=== PATIENT | male | born 1940 | race Caucasian/White ===

== ENCOUNTER 2017-04-29 01:53 | Emergency (ER) | payer MEDICARE, BC ==
[~2017-04-29] VITALS: Ht 175.3 cm; Wt 98.4 kg
[~2017-04-29 01:53] MED LIST: AMIO100T PO; AMIO200T7 PO; ASCO500C PO; ASPI-630 PO; CALC600T4 PO; D RIBOSE; LEVO125T PO; MAGN400C PO; METO200T5 PO; NIAC10002 PO; NIAC500T PO; OMEG1CAP6 PO; PANT40GR PO; POTA20TA4 PO; PRAS25TA PO; PRAS50CA PO; TEST200V4 IM; VITA1TAB19 PO; VITA1TAB31 PO; VITA400C11 PO; [UNRECOGNIZED DRUG - OTHER]; glucosamine
[2017-04-29 02:44] LABS: BASO # 0.1 x10^3/uL (0.0-0.2); BASO % 1 % (0-3); EOS # 0.1 x10^3/uL (0.0-0.7); EOS % 1 % (0-3); HEMATOCRIT 45.3 % (39.0-53.0); HEMOGLOBIN 15.5 g/dL (13.0-17.5); LYMPH # 1.7 x10^3/uL (1.0-4.8); LYMPH % 13 % (24-48); MEAN CORPUSCULAR HEMOGLOBIN 34 pg (25-35); MEAN CORPUSCULAR HGB CONC 34 g/dL (31-37); MEAN CORPUSCULAR VOLUME 98 fL (79-100); MONO # 1.3 x10^3/uL (0.0-1.1); MONO % 10 % (0-9); NEUT # 9.7 x10^3uL (1.8-7.7); NEUT % 75 % (31-73); PLATELET COUNT 223 x10^3/uL (140-400); RED BLOOD COUNT 4.62 x10^6/uL (4.30-5.70)
[2017-04-29 02:58] LABS: ALBUMIN/GLOBULIN RATIO 1.2 (1.0-1.7); CALCIUM 9.5 mg/dL (8.5-10.1); CREATININE 1.4 mg/dL (0.7-1.3); GFR 49.3; POTASSIUM 4.4 mmol/L (3.5-5.1); TOTAL BILIRUBIN 0.4 mg/dL (0.2-1.0); TOTAL PROTEIN 7.3 g/dL (6.4-8.2)
[2017-04-29] MEDS ORDERED: MORPHINE SULFATE 4 MG/ML DISP.SYRIN. IV ONE ×2 (03:00→04:30)
--- NOTE | 2017-04-29 03:47 | PHYS DOC ---
Past History Past Medical History: Hypothyroid, Other Additional Past Medical Histor: idiopathic ventric tachycardia Past Surgical History: Pacemaker, Other Additional Past Surgical Histo: bilat knee surgery, pacemaker is also difb Alcohol Use: None Drug Use: None Adult General Chief Complaint Chief Complaint: ABDOMINAL PAIN HPI HPI Patient is a 76-year-old male who presents to complaints of abdominal pain that started suddenly while he was watching the football game. Patient started in the middle abdominal area that has migrated to the right middle and right lower abdominal area. Patient denies any vomiting or diarrhea, he is passing gas. No recent trauma. Patient denies any chest pain or back pain or testicular pain. Review of Systems Review of Systems Constitutional: Denies fever or chills [] HENT: Denies nasal congestion or sore throat [] Respiratory: Denies cough or shortness of breath [] Cardiovascular: No chest pain GI: Denies nausea, vomiting, bloody stools or diarrhea. Yes to abdominal pain as described in the history of present illness : Denies dysuria or hematuria or testicular pain Musculoskeletal: Denies back pain or joint pain [] Integument: Denies rash or skin lesions [] Neurologic: Denies headache, focal weakness or sensory changes [] All other systems were reviewed and found to be within normal limits, except as documented in this note. Current Medications Current Medications Current Medications Medications (Trade) Dose Ordered Sig/Brianne Start Time Stop Time Status Last Admin Dose Admin Morphine Sulfate (Morphine 4mg Syringe) 4 mg 1X ONCE 04/29/17 03:00 04/29/17 03:01 DC 04/29/17 02:56 4 MG Allergies Allergies Allergies Coded Allergies Type Severity Reaction Last Updated Verified Cephalexin Monohydrate Allergy Intermediate Hives 06/01/15 Yes amoxicillin trihydrate Allergy Intermediate 06/01/15 Yes cefazolin sodium Allergy Intermediate Hives 06/01/15 Yes mexiletine Allergy Intermediate 06/01/15 Yes potassium clavulanate Allergy Intermediate 06/01/15 Yes Physical Exam Physical Exam Constitutional: Well developed, well nourished, no acute distress, non-toxic appearance. [] HENT: Normocephalic, atraumatic, bilateral external ears normal, nose normal. [] Eyes: EOMI, conjunctiva normal, no discharge. [] Neck: Normal range of motion, Midline no stridor. [] Cardiovascular:Heart rate regular rhythm, no murmur, equal pulses, normal perfusion Lungs & Thorax: Bilateral breath sounds clear to auscultation, no tachypnea Abdomen: Bowel sounds normal, soft, tenderness to palpation in the mid abdomen and right mid abdomen and right lower abdomen without guarding or rebound, no masses, no pulsatile masses. : no evidence of torsion[] Skin: Warm, dry, no erythema, no rash. [] Back: No tenderness, no CVA tenderness. [] Extremities: No tenderness, no cyanosis, no clubbing, ROM intact, no edema. [] Neurologic: Alert and oriented X 3, normal motor function, normal speech, no focal deficits noted. [] Psychologic: Affect normal, judgement normal, mood normal. [] Current Patient Data Vital Signs Vital Signs Date Time Temp Pulse Resp B/P (MAP) Pulse Ox O2 Delivery O2 Flow Rate FiO2 04/29/17 02:56 20 99 Room Air 04/29/17 02:00 97.5 61 Lab Results Laboratory Tests Test 04/29/17 02:30 White Blood Count 13.0 x10^3/uL (4.0-11.0) H Red Blood Count 4.62 x10^6/uL (4.30-5.70) Hemoglobin 15.5 g/dL (13.0-17.5) Hematocrit 45.3 % (39.0-53.0) Mean Corpuscular Volume 98 fL (79-100) Mean Corpuscular Hemoglobin 34 pg (25-35) Mean Corpuscular Hemoglobin Concent 34 g/dL (31-37) Red Cell Distribution Width 13.0 % (11.5-14.5) Platelet Count 223 x10^3/uL (140-400) Neutrophils (%) (Auto) 75 % (31-73) H Lymphocytes (%) (Auto) 13 % (24-48) L Monocytes (%) (Auto) 10 % (0-9) H Eosinophils (%) (Auto) 1 % (0-3) Basophils (%) (Auto) 1 % (0-3) Neutrophils # (Auto) 9.7 x10^3uL (1.8-7.7) H Lymphocytes # (Auto) 1.7 x10^3/uL (1.0-4.8) Monocytes # (Auto) 1.3 x10^3/uL (0.0-1.1) H Eosinophils # (Auto) 0.1 x10^3/uL (0.0-0.7) Basophils # (Auto) 0.1 x10^3/uL (0.0-0.2) Sodium Level 141 mmol/L (136-145) Potassium Level 4.4 mmol/L (3.5-5.1) Chloride Level 103 mmol/L (98-107) Carbon Dioxide Level 31 mmol/L (21-32) Anion Gap 7 (6-14) Blood Urea Nitrogen 21 mg/dL (8-26) Creatinine 1.4 mg/dL (0.7-1.3) H Estimated GFR (Cockcroft-Gault) 49.3 BUN/Creatinine Ratio 15 (6-20) Glucose Level 139 mg/dL (70-99) H Calcium Level 9.5 mg/dL (8.5-10.1) Total Bilirubin 0.4 mg/dL (0.2-1.0) Aspartate Amino Transferase (AST) 21 U/L (15-37) Alanine Aminotransferase (ALT) 31 U/L (16-63) Alkaline Phosphatase 58 U/L (46-116) Total Protein 7.3 g/dL (6.4-8.2) Albumin 4.0 g/dL (3.4-5.0) Albumin/Globulin Ratio 1.2 (1.0-1.7) Lipase 110 U/L (73-393) EKG EKG [] Radiology/Procedures Radiology/Procedures IMPRESSION: 1. Findings concerning for acute appendicitis with appendicolith.[] Course & Med Decision Making Course & Med Decision Making Pertinent Labs and Imaging studies reviewed. (See chart for details) [id number] Dr Rouse (surgery) paged, Dr Rogers (hospitalist) paged Dr Rouse ok with transfer and antibiotics. Per pt reaction to first gen cephalosporin is hives only, not anaphylaxis. We will give zosyn as is 4th gen and give slowly and monitor. [id number] Dr Rogers accepts transfer [] Dragon Disclaimer Dragon Disclaimer This electronic medical record was generated, in whole or in part, using a voice recognition dictation system. Departure Departure: Impression: Primary Impression: Appendicitis Disposition: 05 XFER OTHER Condition: STABLE Referrals: GARY BROOKS (PCP) Johan SANDOVAL MD Apr 29, 2017 03:47
[2017-04-29 03:55] LABS: BACTERIA,URINE 0 /HPF (0-FEW); BILIRUBIN,URINE NEG (NEG); CLARITY,URINE CLEAR; COLOR,URINE YELLOW; GLUCOSE,URINE NEG (NEG); NITRITE,URINE NEG (NEG); RBC,URINE 0 /HPF (0-2); UROBILINOGEN,URINE 0.2 mg/dL (0.2 mg/dL); WBC,URINE OCC /HPF (0-4)
--- NOTE | 2017-04-29 04:06 | RAD ---
INDICATION: Generalized abdominal pain - mostly on right side
no previous abdominal surgeries
Per ER Dr no contrast
No previous for comparison COMPARISON: None. TECHNIQUE: Axial CT images were obtained through the abdomen and pelvis without intravenous contrast. Limited assessment of solid organ structures and vasculature secondary to lack of intravenous contrast. One or more of the following individualized dose reduction techniques were utilized for this examination: 1. Automated exposure control; 2. Adjustment of the mA and/or kV according to patient size; 3. Use of iterative reconstruction technique. FINDINGS: Pacemaker leads partially seen. Calcific atherosclerosis. Moderate. Fat-containing inguinal hernias. No intrahepatic bile duct dilation. No peripancreatic edema. Spleen unremarkable. Cystic lesion upper pole left kidney. Left peripelvic cyst versus mild distention left renal collecting system. Urinary bladder is partially distended. The prostate is enlarged. No definite radiopaque obstructive ureter stone. Colonic diverticulosis. 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 No dilated loops of bowel to suggest obstruction. Degenerative changes of spine. Degenerative changes of the bilateral hips. Multilevel central canal and neural foraminal stenosis. IMPRESSION: 1. Findings concerning for acute appendicitis with appendicolith. Electronically signed by: Praneeth Muller MD (04/29/2017 4:03 AM) [facility]
[2017-04-29] MEDS ORDERED: MORPHINE SULFATE 2 MG/ML DISP.SYRIN. IV ONE (04:15)
[2017-04-29] MEDS ORDERED: PIPERACILLIN/TAZOBACTAM 4.5 GM in IV NORMAL SALINE 50ML 50 ML IV ONE (04:30)
[2017-04-29] MEDS ORDERED: IV NORMAL SALINE 50ML 50 ML ONE (04:43)
[2017-04-29] MEDS ORDERED: PIPERACILLIN/TAZOBACTAM 4.5 GM VIAL IV ONE (04:43)
[2017-04-29] MEDS ORDERED: CIPROFLOXACIN 400MG PREMIX 200 ML IV ONE (05:00)
[2017-04-29] MEDS ORDERED: HYDROmorphone PF 2 MG/ML VIAL ONE (05:04)
[2017-04-29] MEDS ORDERED: HYDROmorphone PF 1 MG/ML DISP.SYRIN IV ONE (05:15)
[2017-04-29] MEDS ORDERED: ONDANSETRON PF 4 MG/2 ML VIAL. ONE (06:05)
[2017-04-29] MEDS ORDERED: ONDANSETRON PF 4 MG/2 ML VIAL. IV ONE ×3 (06:30→07:00)
[2017-04-29] MEDS ORDERED: IV NORMAL SALINE 500ML 500 ML IV ONE (06:30)
[2017-04-29 06:50] VITALS: BP 118/70
== END 2017-04-29 06:50 | disposition short-term general hospital (02) ==
LOC: ER 01:53
DX: K35.80 Unspecified acute appendicitis (principal); E03.9 Hypothyroidism, unspecified; Z95.0 Presence of cardiac pacemaker; Z88.1 Allergy status to other antibiotic agents; Z88.8 Allergy status to other drugs, medicaments and biological substances
CPT/HCPCS: 36415; 74176; 80053; 81001; 82947; 83690; 85025; 96365; 96367; 96375; 96376; 99285; J0744; J1170; J2270; J2405; J3490; J7040

== ENCOUNTER 2018-03-13 06:34 | Emergency (ER) | payer MEDICARE, BC ==
[~2018-03-13] VITALS: Ht 177.8 cm; Wt 97.9 kg
[~2018-03-13 06:34] MED LIST changes: +METO200T46 PO; -METO200T5 PO
[2018-03-13 06:40] VITALS: BP 154/75
[2018-03-13 06:59] LABS: BASO # 0.1 x10^3/uL (0.0-0.2); BASO % 1 % (0-3); EOS # 0.1 x10^3/uL (0.0-0.7); EOS % 2 % (0-3); HEMATOCRIT 40.3 % (39.0-53.0); HEMOGLOBIN 13.7 g/dL (13.0-17.5); LYMPH % 40 % (24-48); MEAN CORPUSCULAR HEMOGLOBIN 33 pg (25-35); MEAN CORPUSCULAR HGB CONC 34 g/dL (31-37); MEAN CORPUSCULAR VOLUME 98 fL (79-100); MONO # 0.7 x10^3/uL (0.0-1.1); MONO % 13 % (0-9); NEUT # 2.3 x10^3uL (1.8-7.7); NEUT % 44 % (31-73); PLATELET COUNT 217 x10^3/uL (140-400); RED CELL DISTRIBUTION WIDTH 12.8 % (11.5-14.5); WHITE BLOOD COUNT 5.1 x10^3/uL (4.0-11.0)
[2018-03-13] MEDS ORDERED: IV NORMAL SALINE 1,000ML 1,000 ML IV SCH (07:00)
[2018-03-13] MEDS ORDERED: MIDAZOLAM HCL PF 5 MG/5 ML VIAL. IV ONE (07:15)
[2018-03-13] MEDS ORDERED: METOPROLOL TARTRATE 5 MG/5 ML VIAL. IV ONE (07:15)
--- NOTE | 2018-03-13 07:17 | PHYS DOC ---
Past History Past Medical History: Heart Disease Additional Past Medical Histor: idiopathic ventric tachycardia Past Surgical History: Appendectomy, Other Additional Past Surgical Histo: bilat knee surgery, pacemaker is also difb Alcohol Use: None Drug Use: None Adult General Chief Complaint Chief Complaint: CHEST PAIN HPI HPI Patient is a 77-year-old male who presents with complaint that his defibrillator has been firing over the last few days. This morning the defibrillator has fired twice, first at 5:27 AM and second time at 6:12 AM. The last time it had fired was on the of this month. Patient does indicate that for about a month he has been feeling like he is in of brain fog and just having generalized weakness. He denies any chest pain but does indicate that he has little bit of shortness of breath. He states that just prior to the defibrillator going off he was not aware of any specific symptoms. He does admit to feeling anxious at this time in anticipation of defibrillator going off again. Review of Systems Review of Systems Constitutional: Denies fever or chills [] Respiratory: Denies cough. Admits to mild shortness of breath [] Cardiovascular: Denies chest pain[] GI: Denies abdominal pain, nausea, vomiting or diarrhea [] Neurologic: Denies headache, focal weakness or sensory changes [] All other systems were reviewed and found to be within normal limits, except as documented in this note. Allergies Allergies Allergies Coded Allergies Type Severity Reaction Last Updated Verified Cephalexin Monohydrate Allergy Intermediate Hives 06/01/15 Yes amoxicillin trihydrate Allergy Intermediate 06/01/15 Yes cefazolin sodium Allergy Intermediate Hives 06/01/15 Yes mexiletine Allergy Intermediate 06/01/15 Yes potassium clavulanate Allergy Intermediate 06/01/15 Yes Physical Exam Physical Exam Constitutional: Well developed, well nourished, no acute distress, non-toxic appearance. [] HENT: Normocephalic, atraumatic, bilateral external ears normal, oropharynx moist, no oral exudates, nose normal. [] Eyes: PERRLA, EOMI, conjunctiva normal, no discharge. [] Neck: Normal range of motion, no tenderness, supple, no stridor. [] Cardiovascular: Regular rate and rhythm [] Lungs & Thorax: Bilateral breath sounds clear to auscultation [] Abdomen: Bowel sounds normal, soft, no tenderness. [] Skin: Warm, dry, no erythema, no rash. [] Extremities: No tenderness, no cyanosis, no clubbing, ROM intact, no edema. [] Neurologic: Alert and oriented X 3, normal motor function, normal sensory function, no focal deficits noted. [] Current Patient Data Vital Signs Vital Signs Date Time Temp Pulse Resp B/P (MAP) Pulse Ox O2 Delivery O2 Flow Rate FiO2 03/13/18 06:40 97.4 72 20 100 Room Air EKG EKG EKG demonstrates normal sinus rhythm with rate of 63.[] Radiology/Procedures Radiology/Procedures [] Impressions: PROCEDURE: PORTABLE CHEST 1V Single view chest 03/13/2018 CLINICAL INDICATION: Weakness. COMPARISON: Chest 05/31/2015 FINDINGS: Left chest wall cardiac conduction device is in similar position. There are multiple abandoned right subclavian cardiac conduction device leads in similar position. Cardiac and mediastinal silhouettes unremarkable. No pleural effusion, pneumothorax or focal consolidation. IMPRESSION: No acute cardiopulmonary abnormality. Course & Med Decision Making Course & Med Decision Making Pertinent Labs and Imaging studies reviewed. (See chart for details) Upon patient arrival, an IV was established and blood work drawn. Patient's pacemaker was interrogated. While awaiting interrogation report, patient had a third discharge of his defibrillator. At this point, Dr. Colvin was contacted and he is recommending re-bolusing with amiodarone and starting drip. In the meantime, interrogation report returned and demonstrates 3 episodes of ventricular fibrillation for which defibrillator discharged and successfully treated. Patient given IV bolus of amiodarone followed by amiodarone drip. Patient will be transferred to [facility] with Dr. Bustillo accepting. A total of 40 minutes of critical care time was spent on this patient and was inclusive of direct [id number] patient care, ordering and reviewing radiological and laboratory studies, discussion of patient's case with family as well as consultants, and finally on documentation of this patient's medical record. Dragon Disclaimer Dragon Disclaimer This electronic medical record was generated, in whole or in part, using a voice recognition dictation system. Departure Departure: Impression: Primary Impression: Ventricular fibrillation Disposition: XFER SHT-TRM HOSP Condition: GUARDED Referrals: GARY BROOKS (PCP) IRVING WASHINGTON Jr. DO Mar 13, 2018 07:17
[2018-03-13 07:18] LABS: ALBUMIN 3.6 g/dL (3.4-5.0); ALBUMIN/GLOBULIN RATIO 1.1 (1.0-1.7); CALCIUM 8.5 mg/dL (8.5-10.1); CREATININE 1.1 mg/dL (0.7-1.3); GFR 64.9; MAGNESIUM 2.2 mg/dL (1.8-2.4); POTASSIUM 4.2 mmol/L (3.5-5.1); TOTAL BILIRUBIN 0.6 mg/dL (0.2-1.0); TOTAL PROTEIN 6.8 g/dL (6.4-8.2)
--- NOTE | 2018-03-13 07:30 | EKG ---
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
--- NOTE | 2018-03-13 07:49 | RAD ---
Single view chest 03/13/2018 CLINICAL INDICATION: Weakness. COMPARISON: Chest 05/31/2015 FINDINGS: Left chest wall cardiac conduction device is in similar position. There are multiple abandoned right subclavian cardiac conduction device leads in similar position. Cardiac and mediastinal silhouettes unremarkable. No pleural effusion, pneumothorax or focal consolidation. IMPRESSION: No acute cardiopulmonary abnormality. Electronically signed by: Juan Bullock MD (03/13/2018 7:45 AM) [facility]
[2018-03-13] MEDS ORDERED: AMIODARONE 900 MG in IV DEXTROSE 5% 500 ML IV PRN ×2 (08:00→08:15)
[2018-03-13] MEDS ORDERED: AMIODARONE 150 MG in IV DEXTROSE 5% 100 ML IVP ONE (08:00)
[2018-03-13] MEDS ORDERED: AMIODARONE 150 MG/3 ML VIAL IVP ONE (08:02)
== END 2018-03-13 08:45 | disposition short-term general hospital (02) ==
LOC: ER 06:34
DX: I49.01 Ventricular fibrillation (principal); Z95.810 Presence of automatic (implantable) cardiac defibrillator; Z86.79 Personal history of other diseases of the circulatory system; Z88.1 Allergy status to other antibiotic agents; Z88.8 Allergy status to other drugs, medicaments and biological substances
CPT/HCPCS: 36415; 71045; 80053; 83735; 83880; 84443; 84484; 85025; 85610; 93005; 99285

== ENCOUNTER 2018-07-24 12:52 | Emergency (ER) | payer MEDICARE, BC ==
[~2018-07-24] VITALS: Ht 177.8 cm; Wt 87.2 kg
[2018-07-24 13:14] LABS: BASO # 0.1 x10^3/uL (0.0-0.2); BASO % 1 % (0-3); EOS % 0 % (0-3); HEMATOCRIT 39.8 % (39.0-53.0); HEMOGLOBIN 13.7 g/dL (13.0-17.5); LYMPH # 1.6 x10^3/uL (1.0-4.8); LYMPH % 18 % (24-48); MEAN CORPUSCULAR HEMOGLOBIN 33 pg (25-35); MEAN CORPUSCULAR HGB CONC 34 g/dL (31-37); MEAN CORPUSCULAR VOLUME 97 fL (79-100); MONO # 0.9 x10^3/uL (0.0-1.1); MONO % 10 % (0-9); NEUT # 6.3 x10^3uL (1.8-7.7); NEUT % 71 % (31-73); PLATELET COUNT 283 x10^3/uL (140-400); RED BLOOD COUNT 4.09 x10^6/uL (4.30-5.70); RED CELL DISTRIBUTION WIDTH 14.3 % (11.5-14.5); WHITE BLOOD COUNT 8.9 x10^3/uL (4.0-11.0)
[2018-07-24] MEDS ORDERED: METOCLOPRAMIDE HCL 10 MG/2 ML VIAL. IV ONE (13:30)
[2018-07-24] MEDS ORDERED: diphenhydrAMINE 50 MG/ML VIAL IVP ONE (13:30)
[2018-07-24] MEDS ORDERED: IV NORMAL SALINE 1,000ML 1,000 ML IV ONE (13:30)
[2018-07-24] MEDS ORDERED: KETOROLAC 30 MG/ML VIAL. IV ONE (13:30)
--- NOTE | 2018-07-24 13:42 | PHYS DOC ---
Past History Past Medical History: Diabetes, Heart Disease, Hypothyroid Additional Past Medical Histor: idiopathic ventric tachycardia Past Surgical History: Appendectomy, Other Additional Past Surgical Histo: bilat knee surgery, pacemaker is also difb Alcohol Use: Occasionally Drug Use: None Adult General Chief Complaint Chief Complaint: CHEST PAIN HPI HPI 78-year-old male presents with headache and chest discomfort. The patient has a defibrillator and had a ventricular ablation in May. The patient has had his defibrillator go off several times prior to the ablation. He presents today because he had the feeling that the defibrillator might go off. He gets a tension type feeling in his chest prior to it going off. He did not have his defibrillator go off today. After he got the discomfort that he thought might cause it to go off, he then got a salvador of the headache that was 9 out of 10 and a global pressure. He admits this could be anxiety thinking his defibrillator was going to go off. Prior to this, the patient has been feeling very well. He has had no complaints recently and has been feeling very well. He has been quite active playing golf and going about his life. He denies fever or chills. Review of Systems Review of Systems Constitutional: Denies fever or chills [] Eyes: Denies change in visual acuity, redness, or eye pain [] HENT: Denies nasal congestion or sore throat [] Respiratory: Denies cough or shortness of breath [] Cardiovascular: No additional information not addressed in HPI [] GI: Denies abdominal pain, nausea, vomiting, bloody stools or diarrhea [] : Denies dysuria or hematuria [] Musculoskeletal: Denies back pain or joint pain [] Integument: Denies rash or skin lesions [] Neurologic: Headache. Denies focal weakness or sensory changes [] Endocrine: Denies polyuria or polydipsia [] All other systems were reviewed and found to be within normal limits, except as documented in this note. Current Medications Current Medications Current Medications Medications (Trade) Dose Ordered Sig/Brianne Start Time Stop Time Status Last Admin Dose Admin Diphenhydramine HCl (Benadryl) 25 mg 1X ONCE 07/24/18 13:30 07/24/18 13:31 DC Ketorolac Tromethamine (Toradol 30mg Vial) 30 mg 1X ONCE 07/24/18 13:30 07/24/18 13:31 DC Metoclopramide HCl (Reglan Vial) 10 mg 1X ONCE 07/24/18 13:30 07/24/18 13:31 DC Sodium Chloride 1,000 ml @ 1,000 mls/hr 1X ONCE 07/24/18 13:30 07/24/18 14:29 Allergies Allergies Allergies Coded Allergies Type Severity Reaction Last Updated Verified Cephalexin Monohydrate Allergy Intermediate Hives 07/24/18 Yes amoxicillin trihydrate Allergy Intermediate 07/24/18 Yes cefazolin sodium Allergy Intermediate Hives 07/24/18 Yes mexiletine Allergy Intermediate 07/24/18 Yes potassium clavulanate Allergy Intermediate 07/24/18 Yes Physical Exam Physical Exam Constitutional: Well developed, well nourished, no acute distress, non-toxic appearance. [] HENT: Normocephalic, atraumatic, bilateral external ears normal, oropharynx moist, no oral exudates, nose normal. [] Eyes: PERRLA, EOMI, conjunctiva normal, no discharge. [] Neck: Normal range of motion, no tenderness, supple, no stridor. [] Cardiovascular:Heart rate regular rhythm, no murmur [] Lungs & Thorax: Bilateral breath sounds clear to auscultation. ICD in the left upper chest. [] Abdomen: Bowel sounds normal, soft, no tenderness, no masses, no pulsatile masses. [] Skin: Warm, dry, no erythema, no rash. [] Back: No tenderness, no CVA tenderness. [] Extremities: No tenderness, no cyanosis, no clubbing, ROM intact, no edema. [] Neurologic: Alert and oriented X 3, normal motor function, normal sensory function, no focal deficits noted. [] Psychologic: Affect normal, judgement normal, mood anxious. [] Current Patient Data Vital Signs Vital Signs Date Time Temp Pulse Resp B/P (MAP) Pulse Ox O2 Delivery O2 Flow Rate FiO2 07/24/18 12:59 97.6 63 17 98 Room Air Lab Results Laboratory Tests Test 07/24/18 13:01 White Blood Count 8.9 x10^3/uL (4.0-11.0) Red Blood Count 4.09 x10^6/uL (4.30-5.70) L Hemoglobin 13.7 g/dL (13.0-17.5) Hematocrit 39.8 % (39.0-53.0) Mean Corpuscular Volume 97 fL (79-100) Mean Corpuscular Hemoglobin 33 pg (25-35) Mean Corpuscular Hemoglobin Concent 34 g/dL (31-37) Red Cell Distribution Width 14.3 % (11.5-14.5) Platelet Count 283 x10^3/uL (140-400) Neutrophils (%) (Auto) 71 % (31-73) Lymphocytes (%) (Auto) 18 % (24-48) L Monocytes (%) (Auto) 10 % (0-9) H Eosinophils (%) (Auto) 0 % (0-3) Basophils (%) (Auto) 1 % (0-3) Neutrophils # (Auto) 6.3 x10^3uL (1.8-7.7) Lymphocytes # (Auto) 1.6 x10^3/uL (1.0-4.8) Monocytes # (Auto) 0.9 x10^3/uL (0.0-1.1) Eosinophils # (Auto) 0.0 x10^3/uL (0.0-0.7) Basophils # (Auto) 0.1 x10^3/uL (0.0-0.2) EKG EKG Paced rhythm, rate 61, leftward axis, no ST elevations or depressions.[] Radiology/Procedures Radiology/Procedures [] Impressions: EXAM: AP View of the chest DATE: 07/24/2018 1:03 PM INDICATION: chest pain COMPARISON: 03/13/2018, 05/31/2015 FINDINGS: The heart is not enlarged. Cardiac generator pack obscures a portion of the left chest with leads in stable position. Mediastinal and hilar contours are stable. No focal parenchymal airspace opacity. No pleural effusion or pneumothorax. IMPRESSION: 1. No radiographic evidence for acute cardiopulmonary process. Electronically signed by: Hari Walker MD (07/24/2018 1:54 PM) [id number] DICTATED AND SIGNED BY: HARI WALKER MD DATE: 07/24/18 1354 CC: RAJESH TORRES DO; GARY BROOKS Course & Med Decision Making Course & Med Decision Making Pertinent Labs and Imaging studies reviewed. (See chart for details) The patient's EKG is unremarkable. His chest x-ray is negative for acute findings. His troponin is negative. His other lab findings are unremarkable. The patient was given 1 L normal saline, 10 mg Reglan, 25 mg of Benadryl, 30 mg of Toradol for his headache. It is resolved at this time. I believe the patient might have been slightly dehydrated as we gave him 1 L of fluids and he did not feel the urge to urinate. The patient feels like he can go home. If he has any new or worsening symptoms he will return to emergency room. He is stable for discharge at this time. [] Dragon Disclaimer Dragon Disclaimer This electronic medical record was generated, in whole or in part, using a voice recognition dictation system. Departure Departure: Impression: Primary Impression: Palpitations Additional Impression: Headache Disposition: 01 HOME, SELF-CARE Condition: IMPROVED Referrals: GARY BROOKS (PCP) Patient Instructions: General Headache Without Cause, [id number] Problem Qualifiers Additional Impression: Headache Headache type: other vascular headache Qualified Codes: G44.1 - Vascular headache, not elsewhere classified RAJESH TORRES DO Jul 24, 2018 13:41
--- NOTE | 2018-07-24 13:57 | RAD ---
EXAM: AP View of the chest DATE: 07/24/2018 1:03 PM INDICATION: chest pain COMPARISON: 03/13/2018, 05/31/2015 FINDINGS: The heart is not enlarged. Cardiac generator pack obscures a portion of the left chest with leads in stable position. Mediastinal and hilar contours are stable. No focal parenchymal airspace opacity. No pleural effusion or pneumothorax. IMPRESSION: 1. No radiographic evidence for acute cardiopulmonary process. Electronically signed by: Hari Castro MD (07/24/2018 1:54 PM) [id number]
[2018-07-24 14:02] LABS: POTASSIUM ISTAT 4.6 mmol/L (3.5-5.0)
[2018-07-24 14:03] LABS: ALBUMIN 4.1 g/dL (3.4-5.0); HEMOGLOBIN ISTAT 13.3 gm/dL; TOTAL BILIRUBIN 0.6 mg/dL (0.2-1.0); TOTAL PROTEIN 7.5 g/dL (6.4-8.2)
[2018-07-24 14:19] LABS: DIRECT BILIRUBIN 0.1 mg/dL (0.0-0.2)
[2018-07-24 15:00] VITALS: BP 119/70
--- NOTE | 2018-07-24 17:21 | EKG ---
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
== END 2018-07-24 15:00 | disposition home or self-care (01) ==
LOC: ER 12:52
DX: G44.1 Vascular headache, not elsewhere classified (principal); R00.2 Palpitations; R07.89 Other chest pain; E11.9 Type 2 diabetes mellitus without complications; E03.9 Hypothyroidism, unspecified; Z95.0 Presence of cardiac pacemaker; Z88.1 Allergy status to other antibiotic agents; Z88.8 Allergy status to other drugs, medicaments and biological substances
CPT/HCPCS: 36415; 71045; 80047; 80076; 84484; 85025; 93005; 96374; 96375; 99284; J1200; J1885; J2765; J7030

== ENCOUNTER 2018-08-20 17:41 | Emergency (ER) | payer MEDICARE, BC ==
[~2018-08-20] VITALS: Ht 177.8 cm; Wt 87.2 kg
[2018-08-20] MEDS: ONDANSETRON PF 4 MG/2 ML VIAL. IV ONE (18:14)
--- NOTE | 2018-08-20 18:15 | PHYS DOC ---
Past History Past Medical History: Diabetes, Heart Disease, Hypothyroid Additional Past Medical Histor: idiopathic ventric tachycardia (IRVING WAY Jr. DO) Past Surgical History: Appendectomy, Other Additional Past Surgical Histo: bilat knee surgery, pacemaker is also difb (IRVING WAY Jr. DO) Alcohol Use: Occasionally Drug Use: None (IRVING WAY Jr. DO) Adult General Chief Complaint Chief Complaint: DIZZY/LIGHT HEADED HPI HPI Patient is a 78-year-old male who presents with complaint of severe headache and dizziness that he indicates that started yesterday. Patient states that pain currently is rated at an 8 out of 10 but states that last night the pain was at a 10 out of 10. He also indicates that he has been feeling dizzy which she describes as just feeling off balance. He also indicates that when he walks he feels very wobbly on his feet but indicates that he is not ataxic. He describes the pains in his head is shooting type pains like his head is cannot pop off. He states that he feels like he is just leaving this world. He admits to nausea but is has no vomiting. He denies any photophobia or phonophobia. Patient does complain of tinnitus but denies any visual changes. Patient has had no fever and also denies any recent trauma. (IRVING WAY Jr. DO) Review of Systems Review of Systems Constitutional: Denies fever or chills [] Eyes: Denies change in visual acuity, redness, or eye pain [] Respiratory: Denies cough or shortness of breath [] Cardiovascular: No additional information not addressed in HPI [] GI: Denies abdominal pain. Admits to nausea without vomiting. [] Integument: Denies rash or skin lesions [] Neurologic: Complains of severe headache without focal weakness or sensory changes. Complains of dizziness and tinnitus [] All other systems were reviewed and found to be within normal limits, except as documented in this note. (IRVING WAY Jr. DO) Allergies Allergies Allergies Coded Allergies Type Severity Reaction Last Updated Verified Cephalexin Monohydrate Allergy Intermediate Hives 07/24/18 Yes amoxicillin trihydrate Allergy Intermediate 07/24/18 Yes cefazolin sodium Allergy Intermediate Hives 07/24/18 Yes mexiletine Allergy Intermediate 07/24/18 Yes potassium clavulanate Allergy Intermediate 07/24/18 Yes (IRVING [address] Jr., DO) Physical Exam Physical Exam Constitutional: Well developed, well nourished, in mild distress, non-toxic appearance. [] HENT: Normocephalic, atraumatic, bilateral external ears normal, oropharynx moist, no oral exudates, nose normal. [] Eyes: PERRLA, EOMI, conjunctiva normal, no discharge. [] Neck: Normal range of motion, no tenderness, supple, no stridor. [] Cardiovascular: Regular rate and rhythm[] Lungs & Thorax: Bilateral breath sounds clear to auscultation [] Abdomen: Bowel sounds normal, soft, no tenderness. [] Skin: Warm, dry, no erythema, no rash. [] Extremities: No tenderness, no cyanosis, no clubbing, ROM intact. [] Neurologic: Alert and oriented X 3, normal motor function, normal sensory function, no focal deficits noted. [] (IRVING WAY Jr., DO) Physical Exam Constitutional: Well developed, well nourished, non-toxic appearance. [] HENT: Normocephalic, atraumatic, bilateral TMs normal, oropharynx moist, nose normal. [] Eyes: PERRL, EOMI, conjunctiva normal, no discharge, horizontal nystagmus noted looking right Neck: Normal range of motion, no midline tenderness, right mid-cervical paraspinal tenderness noted, supple, no meningeal signs Cardiovascular: Regular rate and rhythm, no chest wall pain Lungs & Thorax: Bilateral breath sounds clear to auscultation, no respiratory distress Abdomen: Soft, no tenderness. [] Skin: Warm, dry, no erythema, no rash. [] Extremities: No tenderness, ROM intact. [] Neurologic: Alert and oriented X 3, normal motor function, normal sensory funct ion, no focal deficits noted. Psychiatric: Mood- anxious, Judgement- stable [] (ADRIAN HENDERSON DO) Current Patient Data Vital Signs Vital Signs Date Time Temp Pulse Resp B/P (MAP) Pulse Ox O2 Delivery O2 Flow Rate FiO2 08/20/18 18:02 98.2 68 18 98 Room Air (IRVING WAY Jr., DO) EKG EKG [] (IRVING WAY Jr., DO) EKG @1757 NSR at 61bpm, NO ST elevation, nonspecific t wave inversion III, QRS 116ms, QT/QTc 404/408ms, Q wave in aVL (ADRIAN HENDERSON DO) Radiology/Procedures Radiology/Procedures [] (IRVING WAY Jr., DO) Radiology/Procedures PROCEDURE: CT HEAD WO CONTRAST CT HEAD WO CONTRAST Indication: Severe headache today Exposure: One or more of the following individualized dose reduction techniques were utilized for this examination: 1. Automated exposure control 2. Adjustment of the mA and/or kV according to patient size 3. Use of iterative reconstruction technique. Technique: Standard imaging without intravenous contrast. There is a CSF density lesion in the left anterior posterior fossa appears similar as study of 12/27/2014 and is likely an arachnoid cyst. Mass effect upon the cerebellum is unchanged. No evidence of acute intracranial hemorrhage, mass effect, midline shift or abnormal extra-axial fluid collection. Low-density in the white matter bilaterally, a nonspecific finding, but which is commonly due to chronic small vessel ischemic disease in a patient of this age.. Mild cerebral atrophy is again seen. Orbits are symmetric. No notable scalp swelling. Minimal mucous retention cyst or polyp in the partially seen left maxillary sinus. No acute skull abnormality IMPRESSION: 1. Low-density lesion left posterior fossa, likely unchanged arachnoid cyst. 2. No acute intracranial hemorrhage or mass effect. Electronically signed by: Adrian Bustos MD (08/20/2018 6:39 PM) [facility] (ADRIAN HENDERSON DO) Course & Med Decision Making Course & Med Decision Making Pertinent Labs and Imaging studies reviewed. (See chart for details) Patient moved to room upon arrival was evaluated by your medical staff after which a workup was initiated to include blood work and CT imaging of the brain without contrast. At this time, workup is pending and patient is being signed out to the oncoming ER physician at 6:15 PM. (IRVING [address] Jr., DO) Course & Med Decision Making Sign out received from Dr. Way for patient with dizziness and headache. Patient seen and evaluated by myself. NIHSS 0. Some right paraspinal tenderness noted. Horizontal nystagmus noted. Concern for vertigo. Headache previously addressed with interval improvement. Labs reviewed. CT head without acute process. EKG stable. Patient offered observation admission vs discharge home with close follow-up with PCP. Patient elected to be discharge home with follow-up. Patient stable for discharge with outpatient follow-up with PCP/neurologist. Neurology referral provided. Discussed findings and plan with patient and family, who acknowledge understanding and agreement. (ADRIAN HENDERSON DO) Dragon Disclaimer Dragon Disclaimer This electronic medical record was generated, in whole or in part, using a voice recognition dictation system. (IRVING WAY Jr., DO) Departure Departure: Impression: Primary Impression: Dizziness Additional Impressions: Headache Neck pain Disposition: HOME, SELF-CARE Condition: STABLE Referrals: GARY BROOKS (PCP) MORA MARTINEZ MD Patient Instructions: Dizziness, [id number], Headache, FAQs, Vertigo, Eeow-wl-[id number] Scripts Orphenadrine Citrate (ORPHENADRINE CITRATE) 100 Mg Tablet.er 1 TAB PO BID PRN for MUSCLE PAIN, #14 TAB 0 Refills Prov: ADRIAN HENDERSON DO 08/20/18 Butalb/Acetaminophen/Caffeine (QWOWSL-AEWLDSQN-BANT 50-325-40) 1 Each Tablet 1 EACH PO Q6HRS PRN for HEADACHE, #14 TAB Prov: ADRIAN HENDERSON DO 08/20/18 Meclizine Hcl (MECLIZINE HCL) 25 Mg Tablet 1 TAB PO PRN TID for DIZZINESS, #20 TAB Prov: ADRIAN HENDERSON DO 08/20/18 NIHSS - ED NIH Stroke Scale: NIH Stroke Scale Response (Comments) Value Level of Consciousness: 0 Alert/Responsive 0 LOC Questions: 0 Answers both correctly 0 LOC Commands: 0 Performs both tasks 0 Best Gaze: 0 Normal 0 Visual: 0 No visual loss 0 Facial Palsy: 0 Normal, symmetrical 0 Motor - Left Arm 0 No drift 0 Motor - Right Arm 0 No drift 0 Motor - Left Leg 0 No drift 0 Motor: Right Leg 0 No drift 0 Limb Ataxia: 0 Absent 0 Sensory: 0 No loss 0 Best Language: 0 Normal 0 Dysathria: 0 Normal 0 Extinction and Inattention: 0 Normal 0 Total 0 Problem Qualifiers Additional Impressions: Headache Headache type: unspecified Headache chronicity pattern: acute headache Intractability: not intractable Qualified Codes: R51 - Headache IRVING WAY Jr., DO August 20, 2018 18:15 ADRIAN HENDERSON DO August 20, 2018 19:39
[2018-08-20 18:16] LABS: BASO # 0.1 x10^3/uL (0.0-0.2); BASO % 1 % (0-3); EOS # 0.1 x10^3/uL (0.0-0.7); EOS % 1 % (0-3); HEMATOCRIT 39.9 % (39.0-53.0); HEMOGLOBIN 13.5 g/dL (13.0-17.5); LYMPH # 1.5 x10^3/uL (1.0-4.8); LYMPH % 26 % (24-48); MEAN CORPUSCULAR HEMOGLOBIN 33 pg (25-35); MEAN CORPUSCULAR HGB CONC 34 g/dL (31-37); MEAN CORPUSCULAR VOLUME 98 fL (79-100); MONO # 0.6 x10^3/uL (0.0-1.1); MONO % 10 % (0-9); NEUT # 3.6 x10^3uL (1.8-7.7); NEUT % 62 % (31-73); PLATELET COUNT 288 x10^3/uL (140-400); RED BLOOD COUNT 4.07 x10^6/uL (4.30-5.70); RED CELL DISTRIBUTION WIDTH 13.7 % (11.5-14.5); WHITE BLOOD COUNT 5.8 x10^3/uL (4.0-11.0)
[2018-08-20 18:25] LABS: ALBUMIN/GLOBULIN RATIO 1.3 (1.0-1.7); CALCIUM 8.6 mg/dL (8.5-10.1); CREATININE 1.1 mg/dL (0.7-1.3); GFR 64.7; MAGNESIUM 2.1 mg/dL (1.8-2.4); POTASSIUM 4.5 mmol/L (3.5-5.1); TOTAL BILIRUBIN 0.4 mg/dL (0.2-1.0)
--- NOTE | 2018-08-20 18:42 | RAD ---
CT HEAD WO CONTRAST Indication: Severe headache today Exposure: One or more of the following individualized dose reduction techniques were utilized for this examination: 1. Automated exposure control 2. Adjustment of the mA and/or kV according to patient size 3. Use of iterative reconstruction technique. Technique: Standard imaging without intravenous contrast. There is a CSF density lesion in the left anterior posterior fossa appears similar as study of 12/27/2014 and is likely an arachnoid cyst. Mass effect upon the cerebellum is unchanged. No evidence of acute intracranial hemorrhage, mass effect, midline shift or abnormal extra-axial fluid collection. Low-density in the white matter bilaterally, a nonspecific finding, but which is commonly due to chronic small vessel ischemic disease in a patient of this age.. Mild cerebral atrophy is again seen. Orbits are symmetric. No notable scalp swelling. Minimal mucous retention cyst or polyp in the partially seen left maxillary sinus. No acute skull abnormality IMPRESSION: 1. Low-density lesion left posterior fossa, likely unchanged arachnoid cyst. 2. No acute intracranial hemorrhage or mass effect. Electronically signed by: Adrian Bustos MD (08/20/2018 6:39 PM) [facility]
[2018-08-20] MEDS: IV NORMAL SALINE 1,000ML 1,000 ML IV ONE (18:44)
[2018-08-20] MEDS: MECLIZINE 12.5 MG TABLET. PO ONE (19:28)
[2018-08-20] MEDS ORDERED: BUTA1TAB23 PO (19:38)
[2018-08-20] MEDS ORDERED: MECL25TA3 PO (19:38)
[2018-08-20] MEDS ORDERED: ORPH-16 PO (19:38)
[2018-08-20 19:50] VITALS: BP 126/74
== END 2018-08-20 19:50 | disposition home or self-care (01) ==
LOC: ER 17:41
DX: R51 Headache (principal); R42 Dizziness and giddiness; H93.13 Tinnitus, bilateral; M54.2 Cervicalgia; E11.9 Type 2 diabetes mellitus without complications; E03.9 Hypothyroidism, unspecified; Z95.0 Presence of cardiac pacemaker; Z88.1 Allergy status to other antibiotic agents; Z88.8 Allergy status to other drugs, medicaments and biological substances
CPT/HCPCS: 36415; 70450; 80053; 83735; 84443; 85025; 85610; 85730; 96361; 96374; 96375; 99285; J2405; J3010; J8597; J7030

== ENCOUNTER → 2018-11-20 | Outpatient (CLI) | payer MEDICARE, BC ==
[~2018-11-20] MED LIST changes: +BUTA1TAB23 PO; +MECL25TA3 PO; +ORPH-16 PO
[2018-11-20] MEDS: IOHEXOL 300 MG/ML 75 ML VIAL. IV ONE (10:33)
--- NOTE | 2018-11-20 11:58 | RAD ---
CT HEAD WO/W CONTRAST History: G44.52, H53.8 visual disturbance, persistent headache Comparison: December 27, 2014; September 08, 2004 Technique: Noncontrast CT imaging was performed of the head. Exposure: One or more of the following individualized dose reduction techniques were utilized for this examination: 1. Automated exposure control 2. Adjustment of the mA and/or kV according to patient size 3. Use of iterative reconstruction technique. Findings: No acute extra-axial or parenchymal hemorrhage is identified. There is no significant intra-axial mass affect or midline shift. The raman-white differentiation of the major vascular territories is preserved. There is again multifocal scattered at least moderate ill-defined low-density of the supratentorial parenchyma bilaterally. There is again extra-axial CSF density collection of the left lateral posterior fossa unchanged in appearance dating back to 2004 exam about 4.1 cm transverse by 2 cm AP likely arachnoid cyst. No nodular parenchymal or leptomeningeal enhancement is identified by CT. Ventricular size is stable, within normal limits. Globes are symmetric in appearance. Visualized paranasal sinuses are overall aerated, not fully included. Mastoid air cells are aerated. Impression: 1. There is multifocal low-density of the supratentorial parenchyma bilaterally as seen previously, nonspecific findings more commonly due to chronic microvascular ischemic disease in a patient this age. Electronically signed by: Kee Narayan MD (11/20/2018 11:55 AM) [id number]
== END | disposition home or self-care (01) ==
LOC: CT 09:39
PROVIDERS: ATTEND Family Medicine
DX: I67.82 Cerebral ischemia (principal); G44.52 New daily persistent headache (NDPH); H53.8 Other visual disturbances
CPT/HCPCS: 70470; Q9967

== ENCOUNTER 2018-11-26 12:18 | Observation (INO) | payer MEDICARE, BC ==
[~2018-11-26] VITALS: Ht 177.8 cm; Wt 83.0 kg
[2018-11-26] MEDS ORDERED: IV NORMAL SALINE 1,000ML 1,000 ML IV ONE (13:15)
[2018-11-26 13:32] LABS: BASO # 0.1 x10^3/uL (0.0-0.2); BASO % 1 % (0-3); EOS # 0.1 x10^3/uL (0.0-0.7); EOS % 1 % (0-3); HEMATOCRIT 38.4 % (39.0-53.0); HEMOGLOBIN 12.9 g/dL (13.0-17.5); LYMPH # 0.9 x10^3/uL (1.0-4.8); LYMPH % 14 % (24-48); MEAN CORPUSCULAR HEMOGLOBIN 34 pg (25-35); MEAN CORPUSCULAR HGB CONC 34 g/dL (31-37); MEAN CORPUSCULAR VOLUME 100 fL (79-100); MONO # 0.7 x10^3/uL (0.0-1.1); MONO % 11 % (0-9); NEUT # 4.5 x10^3uL (1.8-7.7); NEUT % 73 % (31-73); PLATELET COUNT 271 x10^3/uL (140-400); RED BLOOD COUNT 3.83 x10^6/uL (4.30-5.70); RED CELL DISTRIBUTION WIDTH 13.1 % (11.5-14.5); WHITE BLOOD COUNT 6.1 x10^3/uL (4.0-11.0)
--- NOTE | 2018-11-26 13:39 | EKG ---
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
[2018-11-26 13:43] LABS: ALBUMIN 4.2 g/dL (3.4-5.0); ALBUMIN/GLOBULIN RATIO 1.4 (1.0-1.7); CALCIUM 9.2 mg/dL (8.5-10.1); CREATININE 1.2 mg/dL (0.7-1.3); GFR 58.6; POTASSIUM 4.7 mmol/L (3.5-5.1); TOTAL BILIRUBIN 0.7 mg/dL (0.2-1.0); TOTAL PROTEIN 7.3 g/dL (6.4-8.2)
--- NOTE | 2018-11-26 13:50 | RAD ---
EXAM: Chest, single view. HISTORY: Near syncope. COMPARISON: 07/24/2018 FINDINGS: A frontal view of the chest is obtained. There is no infiltrate, pleural effusion or pneumothorax. The heart is normal in size. There is a left cardiac pacemaker defibrillator with leads in expected position. There are retained leads from a prior right cardiac pacemaker unchanged in position. There is a circumscribed nodule overlying the right lower lobe likely due to a nipple shadow. There are few calcified granulomas. IMPRESSION: No acute pulmonary finding. Electronically signed by: Linda Arias MD (11/26/2018 1:47 PM) [place] [id number]
--- NOTE | 2018-11-26 14:02 | PHYS DOC ---
Past History Past Medical History: Diabetes, Heart Disease, Hypothyroid Additional Past Medical Histor: idiopathic ventric tachycardia Past Surgical History: Appendectomy, Knee Replacement, Other Additional Past Surgical Histo: bilat knee surgery, pacemaker is also difb Alcohol Use: None Drug Use: None Adult General Chief Complaint Chief Complaint: HYPOTENSION HPI HPI Patient is a 78 year old male who presents with complaint of a near syncopal episode. The patient states shortly prior to arrival he was brushing his teeth when he started to feel very lightheaded. He stated that he had just gotten out of the shower prior to onset of symptoms. States that he felt like he was going to pass out. Became very clammy and diaphoretic at that time. Denied any associated chest pain. Notes that he has history coronary artery disease and cardiac dysrhythmia. Recently underwent cardiac ablation due to frequent PVCs. This is done in May 2018. Follows with Dr. Smith of electrophysiology as well as Dr. Colvin of interventional cardiology. States currently he is feeling better at this time. Has not had any recent fever. States that he may have become dehydrated which could've caused his symptoms. Review of Systems Review of Systems Constitutional: Denies fever or chills [] Eyes: Denies change in visual acuity, redness, or eye pain [] HENT: Denies nasal congestion or sore throat [] Respiratory: Denies cough or shortness of breath [] Cardiovascular: Near-syncope, denies chest pain or edema[] GI: Denies abdominal pain, nausea, vomiting, bloody stools or diarrhea [] : Denies dysuria or hematuria [] Musculoskeletal: Denies back pain or joint pain [] Integument: Denies rash or skin lesions [] Neurologic: Lightheadedness, denies focal weakness or sensory changes [] All other systems were reviewed and found to be within normal limits, except as documented in this note. Current Medications Current Medications Current Medications Medications (Trade) Dose Ordered Sig/Brianne Start Time Stop Time Status Last Admin Dose Admin Sodium Chloride 1,000 ml @ 1,000 mls/hr 1X ONCE 11/26/18 13:15 11/26/18 14:14 Allergies Allergies Allergies Coded Allergies Type Severity Reaction Last Updated Verified Cephalexin Monohydrate Allergy Intermediate Hives 07/24/18 Yes amoxicillin trihydrate Allergy Intermediate 07/24/18 Yes cefazolin sodium Allergy Intermediate Hives 07/24/18 Yes mexiletine Allergy Intermediate 07/24/18 Yes potassium clavulanate Allergy Intermediate 07/24/18 Yes Physical Exam Physical Exam Constitutional: Well developed, well nourished, no acute distress, non-toxic appearance. [] HENT: Normocephalic, atraumatic, bilateral external ears normal, oropharynx moist, no oral exudates, nose normal. [] Eyes: PERRLA, EOMI, conjunctiva normal, no discharge. [] Neck: Normal range of motion, no tenderness, supple, no stridor. [] Cardiovascular:Heart rate regular rhythm, no murmur [] Lungs & Thorax: Bilateral breath sounds clear to auscultation [] Abdomen: Bowel sounds normal, soft, no tenderness, no masses, no pulsatile masses. [] Skin: Warm, dry, no erythema, no rash. [] Back: No tenderness, no CVA tenderness. [] Extremities: No tenderness, no cyanosis, no clubbing, ROM intact, no edema. [] Neurologic: Alert and oriented X 3, normal motor function, normal sensory function, no focal deficits noted. [] Current Patient Data Vital Signs Vital Signs Date Time Temp Pulse Resp B/P (MAP) Pulse Ox O2 Delivery O2 Flow Rate FiO2 11/26/18 12:46 97.8 63 22 99 Room Air Lab Results Laboratory Tests Test 11/26/18 13:17 White Blood Count 6.1 x10^3/uL (4.0-11.0) Red Blood Count 3.83 x10^6/uL (4.30-5.70) L Hemoglobin 12.9 g/dL (13.0-17.5) L Hematocrit 38.4 % (39.0-53.0) L Mean Corpuscular Volume 100 fL (79-100) Mean Corpuscular Hemoglobin 34 pg (25-35) Mean Corpuscular Hemoglobin Concent 34 g/dL (31-37) Red Cell Distribution Width 13.1 % (11.5-14.5) Platelet Count 271 x10^3/uL (140-400) Neutrophils (%) (Auto) 73 % (31-73) Lymphocytes (%) (Auto) 14 % (24-48) L Monocytes (%) (Auto) 11 % (0-9) H Eosinophils (%) (Auto) 1 % (0-3) Basophils (%) (Auto) 1 % (0-3) Neutrophils # (Auto) 4.5 x10^3uL (1.8-7.7) Lymphocytes # (Auto) 0.9 x10^3/uL (1.0-4.8) L Monocytes # (Auto) 0.7 x10^3/uL (0.0-1.1) Eosinophils # (Auto) 0.1 x10^3/uL (0.0-0.7) Basophils # (Auto) 0.1 x10^3/uL (0.0-0.2) Sodium Level 139 mmol/L (136-145) Potassium Level 4.7 mmol/L (3.5-5.1) Chloride Level 102 mmol/L (98-107) Carbon Dioxide Level 28 mmol/L (21-32) Anion Gap 9 (6-14) Blood Urea Nitrogen 25 mg/dL (8-26) Creatinine 1.2 mg/dL (0.7-1.3) Estimated GFR (Cockcroft-Gault) 58.6 BUN/Creatinine Ratio 21 (6-20) H Glucose Level 97 mg/dL (70-99) Calcium Level 9.2 mg/dL (8.5-10.1) Total Bilirubin 0.7 mg/dL (0.2-1.0) Aspartate Amino Transferase (AST) 22 U/L (15-37) Alanine Aminotransferase (ALT) 25 U/L (16-63) Alkaline Phosphatase 69 U/L (46-116) Troponin I Quantitative < 0.017 ng/mL (0-0.055) Total Protein 7.3 g/dL (6.4-8.2) Albumin 4.2 g/dL (3.4-5.0) Albumin/Globulin Ratio 1.4 (1.0-1.7) EKG EKG EKG #1 at 1326 interpreted by me: Heart rate 62, sinus rhythm, leftward axis, occasional PACs, no acute ST/T-wave abnormalities present EKG #2 at 1439 interpreted by me: Heart rate 61, sinus rhythm, leftward axis, no acute ST/T-wave abnormality is present[] Radiology/Procedures Radiology/Procedures [address] [address] IMAGING REPORT Signed PATIENT: JORGE MELARA ACCOUNT: [id number] : 1940 LOCATION: ER AGE: 78 SEX: M EXAM STATUS: REG ER ORD. PHYSICIAN: GARY STEWARD MD REASON: near syncope PROCEDURE: PORTABLE CHEST 1V EXAM: Chest, single view. HISTORY: Near syncope. COMPARISON: 07/24/2018 FINDINGS: A frontal view of the chest is obtained. There is no infiltrate, pleural effusion or pneumothorax. The heart is normal in size. There is a left cardiac pacemaker defibrillator with leads in expected position. There are retained leads from a prior right cardiac pacemaker unchanged in position. There is a circumscribed nodule overlying the right lower lobe likely due to a nipple shadow. There are few calcified granulomas. IMPRESSION: No acute pulmonary finding. Electronically signed by: Linda Roberson MD (11/26/2018 1:47 PM) [facility] DICTATED AND SIGNED BY: LINDA ROBERSON MD DATE: 11/26/18 6610 CC: GARY STEWARD MD; GARY BROOKS [] Course & Med Decision Making Course & Med Decision Making Pertinent Labs and Imaging studies reviewed. (See chart for details) Patient evaluated for acute cardiac pathology in the emergency department. EKG showed no evidence of dysrhythmia. Patient has a [employer] pacemaker. This was interrogated and not found to have dysrhythmia. Patient was started on IV fluids. While in the emergency department, the patient stated that he was experiencing another episode similar to what he had earlier this morning. Patient's repeat EKG showed no changes. Patient symptoms may be secondary to dehydration. Given continued spontaneous episodes of near-syncope, I do feel that the patient would benefit from admission overnight to the hospital for further monitoring and treatment. I spoke with Dr. Singer who will except care patient in hospital. A consult was placed to Dr. Colvin who will follow with patient in hospital.[] Dragon Disclaimer Dragon Disclaimer This electronic medical record was generated, in whole or in part, using a voice recognition dictation system. Departure Departure: Impression: Primary Impression: Near syncope Additional Impressions: Dehydration History of coronary artery disease Disposition: ADMITTED INPATIENT Admitting Physician: Mara Sniger Condition: STABLE Referrals: GARY BROOKS (PCP) Problem Qualifiers GARY STEWARD MD Nov 26, 2018 14:02
[2018-11-26] MEDS ORDERED: ONDANSETRON PF 4 MG/2 ML VIAL. IV PRN (15:15)
[2018-11-26] MEDS ORDERED: ACETAMINOPHEN 325 MG TABLET PO PRN (15:15)
[2018-11-26 16:55] VITALS: BP 112/54
[2018-11-26] MEDS: IV NORMAL SALINE 1,000ML 1,000 ML IV SCH ×2 (18:57→23:12)
[2018-11-26 18:58] VITALS: BP 105/51
[2018-11-26] MEDS ORDERED: THYR60TA2 PO (18:58)
[2018-11-26] MEDS ORDERED: e (18:58)
[2018-11-26] MEDS ORDERED: CLOP75TA PO (18:58)
[2018-11-26] MEDS ORDERED: [UNRECOGNIZED DRUG - OTHER] (18:58)
[2018-11-26] MEDS ORDERED: LACT1CAP8 PO (18:58)
[2018-11-26] MEDS ORDERED: TEST200V3 IM (18:58)
[2018-11-26] MEDS ORDERED: GREE150C PO (18:58)
[2018-11-26] MEDS ORDERED: METO50TA29 PO (18:58)
[2018-11-26] MEDS ORDERED: OMEG-33 PO (18:58)
[2018-11-26] MEDS ORDERED: ESTRODIM PO (19:00)
[2018-11-26] MEDS ORDERED: NATURAL PROSTATE PO (19:00)
[2018-11-26] MEDS ORDERED: NIACIN ER 500 MG TABLET.ER PO SCH (21:00)
[2018-11-26 23:08] VITALS: BP 101/52
[2018-11-27] MEDS: IV NORMAL SALINE 1,000ML 1,000 ML IV SCH (03:35)
[2018-11-27 05:20] VITALS: BP 104/49
[2018-11-27 05:48] LABS: BASO # 0.1 x10^3/uL (0.0-0.2); BASO % 2 % (0-3); EOS # 0.1 x10^3/uL (0.0-0.7); EOS % 3 % (0-3); HEMATOCRIT 33.6 % (39.0-53.0); HEMOGLOBIN 11.3 g/dL (13.0-17.5); LYMPH # 1.3 x10^3/uL (1.0-4.8); LYMPH % 32 % (24-48); MEAN CORPUSCULAR HEMOGLOBIN 34 pg (25-35); MEAN CORPUSCULAR HGB CONC 34 g/dL (31-37); MEAN CORPUSCULAR VOLUME 101 fL (79-100); MONO # 0.6 x10^3/uL (0.0-1.1); MONO % 15 % (0-9); NEUT % 50 % (31-73); PLATELET COUNT 217 x10^3/uL (140-400); RED BLOOD COUNT 3.34 x10^6/uL (4.30-5.70); RED CELL DISTRIBUTION WIDTH 13.2 % (11.5-14.5); WHITE BLOOD COUNT 4.1 x10^3/uL (4.0-11.0)
[2018-11-27 05:53] LABS: CALCIUM 8.1 mg/dL (8.5-10.1); GFR 72.3; POTASSIUM 4.1 mmol/L (3.5-5.1)
[2018-11-27] MEDS ORDERED: LEVOTHYROXINE 125 MCG TABLET PO SCH (06:00)
--- NOTE | 2018-11-27 08:53 | PDOC ---
PROVIDER NOTE PROVIDER NOTE PROVIDER NOTE CARDIOLOGY CONSULTATION NOTE: Reason for consultation: Near syncope. HPI: Pleasant 78 y.o man well known to our service who presents to the hospital with light headedness. No chest pain, dyspnea, orthopnea or PND. No palpitations. No ICD shocks. He was doing heavy exertional work such as mowing his lawn and playing 9 holes of golf w/o problems. In ER, no acute findings but he did have some minor LH and admitted for o bservation. He has otherwise been compliant with meds, diet. Pmhx: 1. CAD s/p PCI 2. VT s/p ICD with recent VT ablation 3. HTN Sochx: , no alcohol, tob or illicits. Famhx: NC ALL: Mexiletine and abx ROS: As noted above in HPI Physical Exam: VSS, orthostatic vitals negative. Constitutional: Well developed, well nourished, no acute distress, non-toxic appearance. HENT: Normocephalic, atraumatic, Eyes: EOMI, conjunctiva normal, no discharge. Neck: Normal range of motion, no tenderness, supple, no stridor. Cardiovascular: JVP not elevated. No carotid bruit. Nor precordial pulsations or heaves. S1 N,S2N. No murmurs. No rubs or clicks. Thorax and Lungs: Normal respiration. Normal chest expansion. Normal to percuss. Equal breath sounds. No crackles. No wheeze. Abdomen: Bowel sounds normal, soft, no tenderness, no masses, no pulsatile masses. Skin: Warm, dry, no erythema, no rash. Back: No tenderness, no CVA tenderness. Extremities: Intact distal pulses, no tenderness, no cyanosis, no clubbing, ROM intact, no edema. Neurologic: Alert and oriented X 3, normal motor function, normal sensory function, no focal deficits noted. Psychologic: Affect normal, judgement normal, mood normal. DIAGNOSTIC TESTS: EKG wnl ICD interrogation wnl Labs unremarkable Impression: 1. Mild LH/near syncope - no clear cardiac etiology, possible mild hypotension.Advised to stay hydrated 2. VT - stable 3. CAD - stable Plan: 1. No further CV testing needed at this time. If no issues on overnight monito ring, ok to DC. Discussed with patient and his and ER doctor. Thanks. Pls call with questions. MIREYA CORTEZ MD Nov 27, 2018 08:53
[2018-11-27] MEDS ORDERED: CLOPIDOGREL BISULFATE 75 MG TABLET PO SCH (09:00)
[2018-11-27] MEDS ORDERED: METOPROLOL SUCC 24HR ER 50 MG TAB.ER.24H. PO SCH (09:00)
[2018-11-27] MEDS ORDERED: ASPIRIN 81 MG TAB.CHEW PO SCH (09:00)
[2018-11-27 11:11] VITALS: BP 137/64
--- NOTE | 2018-11-27 16:55 | SSS ---
ADMIT DATE: 11/27/2018 HISTORY OF PRESENT ILLNESS: The patient is a 78-year-old male patient who came to the Emergency Room with a complaint of near syncopal episode. He stated that shortly prior to arrival, he was brushing his teeth, he started to feel very lightheaded. He stated he had just gotten out of the shower prior to onset of symptoms. He states that he felt like he was going to pass out, became very clammy and diaphoretic at that time. He denied any associated chest pain. Note that he has history of coronary artery disease and cardiac arrhythmias, recently underwent cardiac ablation due to frequent PVCs. This is done in 05/2018. Follows with ____ of Electrophysiology and Dr. Colvin, the interventional radiologist. When he arrived to the Emergency Room, he felt better, has not had any recent fever. States that he may have become dehydrated, which could have caused his symptoms. He was investigated in the Emergency Room and has had lab work, which basically showed that his white cell count was normal. Lab work is also stable. His first set of cardiac enzyme was less than 0.017, was admitted for observation and to consult the cardiology team. PAST MEDICAL HISTORY: Significant for idiopathic ventricular tachycardia status post AICD, hypothyroidism. He is also known to have hypertension, hypogonadism and hyperlipidemia. PAST SURGICAL HISTORY: Significant for one automatic implanted cardioverter defibrillator ____ has had an arthroscopic surgery of the left knee three times and on the right side twice. He has bilateral cataract extraction, colonoscopy done 4 times. ALLERGIES: He is allergic to CEPHALEXIN, MONOHYDRATE, AMOXICILLIN, CEFAZOLIN, MEXILETINE and CLAVULANIC ACID. FAMILY HISTORY: He has 2 brothers, 1 is older and still alive and healthy, 1 in the age of 81 because of COPD. His mother at age of 51 because of diabetes complications. Father committing suicide when he was only 5 years old. SOCIAL HISTORY: He is , has 2 sons and 1 daughter. He smoked between the age of 21 and until he was 34, then he quit. He drinks alcohol occasionally. 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 REVIEW OF SYSTEMS: As per history of present illness. MEDICATIONS: He is currently on following medications: He is on Plavix 75 mg once a day, niacin 500 mg extended release at bedtime, omega-3 fatty acid 3000 mg soft gel, metoprolol succinate 50 mg once a day, aspirin 81 mg once a day, calcium carbonate 600 mg at bedtime, potassium chloride 20 mEq once a day, magnesium oxide 400 mg once a day, Lactobacillus probiotic 1 tablet p.o. daily, testosterone cypionate 100 mg/1 mL vial intramuscular every Saturday. Levothyroxine sodium 125 mcg daily, thyroid pork 60 mg daily, vitamin B complex one tablet once a day, vitamin D 5000 international units once a day, vitamin E 400 units once a day. He is on green tea leaf extract 350 mg twice a day and DHA 75 mg once a day, dehydroepiandrosterone 50 mg capsule once a day. PHYSICAL EXAMINATION: GENERAL: On arrival to the Emergency Room, he looked well and was clearly in no apparent respiratory distress. No pallor, jaundice, cyanosis or thyromegaly. No jugular venous distention. No limb edema. VITAL SIGNS: His heart rate was 64, blood pressure was 135/84, temperature was 97.8, respiratory rate 22, and oxygen saturation was 99%. HEAD, EYES, EARS, NOSE AND THROAT: Showed normocephalic, atraumatic. NECK: Supple. HEART: Showed normal first and second heart sounds. No gallop or murmur. CHEST: Clear to auscultation. No crepitation or rhonchi. ABDOMEN: Distended, soft, nontender. No guarding or rigidity. No organomegaly. All hernial orifices intact. Bowel sounds normal. NEUROLOGIC: He is awake, alert, responding appropriately. All cranial nerves intact. EXTREMITIES: He moves extremities without difficulty, ambulates without assistance or assistive devices. He did have orthostatics, which showed that he has very little difference between blood pressure standing, sitting and supine. LABORATORY DATA: His lab work showed a white cell count 6100, hemoglobin 13, hematocrit 38, MCV 100, and platelet count 271,000. His chemistry showed serum sodium 139, potassium 4.7, chloride 102, bicarbonate 28, anion gap of 9, BUN 25, creatinine was 1.2, estimated GFR was 58 mL per minute. His glucose was 97, calcium was 9.2. Total bilirubin, AST, ALT, alkaline phosphatase were normal. Total protein was 7.3, albumin was 4.2. The patient was discharged ____ medication. FINAL DISCHARGE DIAGNOSES: Near syncope and likely dehydration, resolved. He has multiple other medical problems including ventricular tachycardia, hypothyroidism, hypertension, hypogonadism and hyperlipidemia. ALESSIO MENARD MD DR: RAMSEY/sandra JOB#: [id number] / [id number]
== END 2018-11-27 13:00 | disposition home or self-care (01) ==
LOC: ER 12:18 → ICU 15:06 → INTOOBSV 15:06 → ICU 16:55
PROVIDERS: ADMIT Internal Medicine; ATTEND Internal Medicine
DX: R55 Syncope and collapse (principal); E86.0 Dehydration; E11.9 Type 2 diabetes mellitus without complications; E03.9 Hypothyroidism, unspecified; E78.5 Hyperlipidemia, unspecified; I49.3 Ventricular premature depolarization; E29.1 Testicular hypofunction; I25.10 Atherosclerotic heart disease of native coronary artery without angina pectoris; I47.2 Ventricular tachycardia; I10 Essential (primary) hypertension; Z90.49 Acquired absence of other specified parts of digestive tract; Z82.5 Family history of asthma and other chronic lower respiratory diseases; Z83.3 Family history of diabetes mellitus; Z95.810 Presence of automatic (implantable) cardiac defibrillator; Z87.891 Personal history of nicotine dependence; Z96.659 Presence of unspecified artificial knee joint; Z98.41 Cataract extraction status, right eye; Z98.42 Cataract extraction status, left eye
CPT/HCPCS: 36415; 71045; 80048; 80053; 84484; 85025; 87641; 93005; 96360; 96361; 99284; G0378; G0379; J7030

== ENCOUNTER 2019-02-02 20:27 | Inpatient (IN) | payer MEDICARE, BC ==
[~2019-02-02] VITALS: Ht 177.8 cm; Wt 89.8 kg
[~2019-02-02 20:27] MED LIST changes: +CLOP75TA PO; +ESTRODIM PO; +GREE150C PO; +LACT1CAP8 PO; +METO50TA29 PO; +NATURAL PROSTATE PO; +OMEG-33 PO; +TEST200V3 IM; +THYR60TA2 PO; +[UNRECOGNIZED DRUG - OTHER]; +e
--- NOTE | 2019-02-02 20:37 | ED.ADGEN ---
Past History Past Medical History: CAD, Diabetes, Heart Disease, Hypothyroid Additional Past Medical Histor: idiopathic ventric tachycardia Past Surgical History: Angioplasty, Appendectomy, Knee Replacement, Other Additional Past Surgical Histo: bilat knee surgery, pacemaker is also difb Alcohol Use: None Drug Use: None Adult General Chief Complaint Chief Complaint ".. I am having some chest pain... ".. " I ve had heart attack before.. they put some stints in.. and I take Plavix.... I was just watching the [employer] game... And all of a sudden got very severe chest pain in center my chest....I have just been seen by cardiology..." HPI HPI Patient is a 78 year old male who presents with above hx and complaints of severe chest pain. While watching a football game at home. Pain was midsternal. Some mild radiation to the left. No obvious dysrhythmia.. Patient has significant cardiac history with [place], Stent placements and Pacer/Defib. Unit. . Pt has hx of DM, Elevated Lipids, HTN, . Pt. Follow with cardiology group at [facility]. Pt. also follows with Dr. Baca. Pt. denies any changes in meds. No recent travel or specific ill contacts. Treated trauma. Review of Systems Review of Systems Constitutional: Denies fever or chills [] Eyes: Denies change in visual acuity, redness, or eye pain [] HENT: Denies nasal congestion or sore throat [] Respiratory: Denies cough or shortness of breath [] Cardiovascular: No additional information not addressed in HPI [] GI: Denies abdominal pain, nausea, vomiting, bloody stools or diarrhea [] : Denies dysuria or hematuria [] Musculoskeletal: Denies back pain or joint pain [] Integument: Denies rash or skin lesions [] Neurologic: Denies headache, focal weakness or sensory changes [] Endocrine: Denies polyuria or polydipsia [] All other systems were reviewed and found to be within normal limits, except as documented in this note. Family History Family History Noncontributory to current presentation Current Medications Current Medications Current Medications Medications (Trade) Dose Ordered Sig/Brianne Start Time Stop Time Status Last Admin Dose Admin Aspirin (Children'S Aspirin) 81 mg 1X ONCE 02/02/19 21:15 02/02/19 21:16 DC 02/02/19 21:10 81 MG Enoxaparin Sodium (Lovenox 100mg Syringe) 90 mg 1X ONCE 02/02/19 21:00 02/02/19 21:01 DC 02/02/19 21:10 90 MG Lactated Ringer's 1,000 ml @ 100 mls/hr Q10H 02/02/19 21:00 02/03/19 06:59 02/02/19 21:11 100 MLS/HR Morphine Sulfate (Morphine 2mg Syringe) 2 mg 1X ONCE 02/02/19 21:00 02/02/19 21:01 DC Nitroglycerin (Nitro-Bid Oint) 1 inch 1X ONCE 02/02/19 21:00 02/02/19 21:01 DC 02/02/19 21:10 1 INCH Allergies Allergies Allergies Coded Allergies Type Severity Reaction Last Updated Verified Cephalexin Monohydrate Allergy Intermediate Hives 07/24/18 Yes amoxicillin trihydrate Allergy Intermediate 07/24/18 Yes cefazolin sodium Allergy Intermediate Hives 07/24/18 Yes mexiletine Allergy Intermediate 07/24/18 Yes potassium clavulanate Allergy Intermediate 07/24/18 Yes Physical Exam Physical Exam Constitutional: no acute distress, non-toxic appearance. [] HENT: Normocephalic, atraumatic, bilateral external ears normal, oropharynx moist, no oral exudates, nose normal. [] Eyes: PERRLA, EOMI, conjunctiva normal, no discharge. [] Neck: Normal range of motion, no tenderness, supple, no stridor. [] Cardiovascular:Heart rate regular rhythm, no murmur []PMI to the left. Lungs & Thorax: Bilateral breath sounds equal apex with few basilar crackles on auscultation [] Defibrillator Abdomen: Bowel sounds normal, soft, no tenderness, no masses, no pulsatile masses. Obese. Old surgery scars. Skin: Warm, dry, no erythema, no rash. [] Back: No tenderness, no CVA tenderness. [] Extremities: No tenderness, no cyanosis, no clubbing, ROM intact, no edema. No cording in his legs. Bilateral knee scars. Neurologic: Alert and oriented X 3, normal motor function, normal sensory function, no focal deficits noted. [] Psychologic: Affect anxious, judgement normal, mood normal. [] Current Patient Data Vital Signs Vital Signs Date Time Temp Pulse Resp B/P (MAP) Pulse Ox O2 Delivery O2 Flow Rate FiO2 02/02/19 21:10 66 130/57 02/02/19 21:07 18 96 Room Air 02/02/19 20:30 97.7 Lab Results Laboratory Tests Test 02/02/19 20:36 White Blood Count 6.3 x10^3/uL (4.0-11.0) Red Blood Count 3.99 x10^6/uL (4.30-5.70) L Hemoglobin 13.4 g/dL (13.0-17.5) Hematocrit 39.8 % (39.0-53.0) Mean Corpuscular Volume 100 fL (79-100) Mean Corpuscular Hemoglobin 34 pg (25-35) Mean Corpuscular Hemoglobin Concent 34 g/dL (31-37) Red Cell Distribution Width 13.0 % (11.5-14.5) Platelet Count 257 x10^3/uL (140-400) Neutrophils (%) (Auto) 51 % (31-73) Lymphocytes (%) (Auto) 34 % (24-48) Monocytes (%) (Auto) 12 % (0-9) H Eosinophils (%) (Auto) 2 % (0-3) Basophils (%) (Auto) 1 % (0-3) Neutrophils # (Auto) 3.2 x10^3uL (1.8-7.7) Lymphocytes # (Auto) 2.1 x10^3/uL (1.0-4.8) Monocytes # (Auto) 0.7 x10^3/uL (0.0-1.1) Eosinophils # (Auto) 0.1 x10^3/uL (0.0-0.7) Basophils # (Auto) 0.1 x10^3/uL (0.0-0.2) Prothrombin Time 9.9 SEC (9.4-11.4) Prothrombin Time INR 1.0 (0.9-1.1) Activated Partial Thromboplast Time 25 SEC (23-33) D-Dimer (Cammy) 0.43 mg/L (0.00-0.50) Sodium Level 141 mmol/L (136-145) Potassium Level 4.5 mmol/L (3.5-5.1) Chloride Level 104 mmol/L (98-107) Carbon Dioxide Level 29 mmol/L (21-32) Anion Gap 8 (6-14) Blood Urea Nitrogen 17 mg/dL (8-26) Creatinine 1.2 mg/dL (0.7-1.3) Estimated GFR (Cockcroft-Gault) 58.6 Glucose Level 124 mg/dL (70-99) H Calcium Level 9.2 mg/dL (8.5-10.1) Magnesium Level 2.2 mg/dL (1.8-2.4) Total Bilirubin 0.2 mg/dL (0.2-1.0) Direct Bilirubin 0.1 mg/dL (0.0-0.2) Aspartate Amino Transferase (AST) 29 U/L (15-37) Alanine Aminotransferase (ALT) 24 U/L (16-63) Alkaline Phosphatase 72 U/L (46-116) Creatine Kinase 136 U/L (39-308) Troponin I Quantitative < 0.017 ng/mL (0-0.055) AR-Kxs-T-Type Natriuretic Peptide 457 pg/mL (0-449) H Total Protein 7.3 g/dL (6.4-8.2) Albumin 4.0 g/dL (3.4-5.0) Lipase 120 U/L (73-393) EKG EKG My interpretation EKG shows a sinus rhythm at 71 bpm there is left axis deviation and a fascicular block. Contour is abnormal anterior septal region however EKG tonight appears similar to the EKG on February 2018.[] Radiology/Procedures Radiology/Procedures [][address] [address] IMAGING REPORT Signed PATIENT: JORGE MELARA ACCOUNT: [id number] : 1940 LOCATION: ICU AGE: 78 SEX: M EXAM STATUS: ADM IN ORD. PHYSICIAN: RADHA JONES MD REASON: cp PROCEDURE: PORTABLE CHEST 1V AP chest x-ray HISTORY: Chest pain. COMPARISON: Chest x-ray November 26, 2018. FINDINGS: Prior retained cardiac pacemaker leads along the right chest and within the right heart again noted. Current implanted cardiac device within the left chest with lead tips at the right atrium and right ventricle again noted. Heart size stable. No pneumothorax, pulmonary opacities or pleural effusions. The bones are unremarkable. IMPRESSION: No acute process. Stable exam. Electronically signed by: Gregg Swan MD (02/02/2019 10:59 PM) [facility] DICTATED AND SIGNED BY: GREGG SWAN MD DATE: 02/02/19 2259 CC: RADHA JONES MD; ALESSIO SINGER MD; GARY BROOKS Course & Med Decision Making Course & Med Decision Making Pertinent Labs and Imaging studies reviewed. (See chart for details) Patient to be admitted to Dr. Singer with Cardiology consult. Serial enzymes. [] Final Impression Final Impression 1. Chest pain 2. Hypertension 3. Diabetes[]-glucose 125 4. History of coronary artery disease with dysrhythmias-status post angioplasty and pacer with defibrillator Dragon Disclaimer Dragon Disclaimer This electronic medical record was generated, in whole or in part, using a voice recognition dictation system. Dragon Disclaimer This chart was dictated in whole or in part using Voice Recognition software in a busy, high-work load, and often noisy Emergency Department environment. It may contain unintended and wholly unrecognized errors or omissions. RADHA JONES MD Feb 02, 2019 20:37
[2019-02-02] MEDS ORDERED: ENOXAPARIN ** NOTE DOSE ** SYRINGE SQ ONE (21:00)
[2019-02-02] MEDS ORDERED: IV RINGERS SOLUTION,LACTATED 1,000 ML IV SCH (21:00)
[2019-02-02] MEDS ORDERED: NITROGLYCERIN OINT 1 GM PACKET. TP ONE (21:00)
[2019-02-02] MEDS ORDERED: ASPIRIN 81 MG TAB.CHEW PO ONE ×2 (21:00→21:15)
[2019-02-02] MEDS ORDERED: MORPHINE SULFATE 2 MG/ML DISP.SYRIN. IV ONE (21:00)
[2019-02-02 21:06] LABS: BASO # 0.1 x10^3/uL (0.0-0.2); BASO % 1 % (0-3); EOS # 0.1 x10^3/uL (0.0-0.7); EOS % 2 % (0-3); HEMATOCRIT 39.8 % (39.0-53.0); HEMOGLOBIN 13.4 g/dL (13.0-17.5); LYMPH # 2.1 x10^3/uL (1.0-4.8); LYMPH % 34 % (24-48); MEAN CORPUSCULAR HEMOGLOBIN 34 pg (25-35); MEAN CORPUSCULAR HGB CONC 34 g/dL (31-37); MEAN CORPUSCULAR VOLUME 100 fL (79-100); MONO # 0.7 x10^3/uL (0.0-1.1); MONO % 12 % (0-9); NEUT # 3.2 x10^3uL (1.8-7.7); NEUT % 51 % (31-73); PLATELET COUNT 257 x10^3/uL (140-400); RED BLOOD COUNT 3.99 x10^6/uL (4.30-5.70); WHITE BLOOD COUNT 6.3 x10^3/uL (4.0-11.0)
[2019-02-02 21:19] LABS: CALCIUM 9.2 mg/dL (8.5-10.1); CREATININE 1.2 mg/dL (0.7-1.3); DIRECT BILIRUBIN 0.1 mg/dL (0.0-0.2); GFR 58.6; MAGNESIUM 2.2 mg/dL (1.8-2.4); POTASSIUM 4.5 mmol/L (3.5-5.1); TOTAL BILIRUBIN 0.2 mg/dL (0.2-1.0); TOTAL PROTEIN 7.3 g/dL (6.4-8.2)
[2019-02-02] MEDS ORDERED: ONDANSETRON PF 4 MG/2 ML VIAL. IV PRN (21:45)
[2019-02-02] MEDS ORDERED: ACETAMINOPHEN 325 MG TABLET PO PRN (21:45)
[2019-02-02] MEDS ORDERED: MORPHINE SULFATE 4 MG/ML DISP.SYRIN. IV PRN (21:45)
[2019-02-02] MEDS ORDERED: ANTI-COAG MONITOR BY PHARMACY. MC PRN (22:00)
--- NOTE | 2019-02-02 23:02 | RAD ---
AP chest x-ray HISTORY: Chest pain. COMPARISON: Chest x-ray November 26, 2018. FINDINGS: Prior retained cardiac pacemaker leads along the right chest and within the right heart again noted. Current implanted cardiac device within the left chest with lead tips at the right atrium and right ventricle again noted. Heart size stable. No pneumothorax, pulmonary opacities or pleural effusions. The bones are unremarkable. IMPRESSION: No acute process. Stable exam. Electronically signed by: Karlo Swan MD (02/02/2019 10:59 PM) [facility]
[2019-02-02 23:15] VITALS: BP 123/61
[2019-02-02] MEDS ORDERED: [UNRECOGNIZED DRUG - OTHER] (23:49)
[2019-02-03 06:49] LABS: CALCIUM 8.7 mg/dL (8.5-10.1); GFR 72.3; POTASSIUM 3.8 mmol/L (3.5-5.1)
[2019-02-03 06:50] LABS: BASO % 1 % (0-3); EOS # 0.1 x10^3/uL (0.0-0.7); EOS % 2 % (0-3); HEMATOCRIT 34.2 % (39.0-53.0); HEMOGLOBIN 11.4 g/dL (13.0-17.5); LYMPH # 1.4 x10^3/uL (1.0-4.8); LYMPH % 33 % (24-48); MEAN CORPUSCULAR HEMOGLOBIN 33 pg (25-35); MEAN CORPUSCULAR HGB CONC 33 g/dL (31-37); MEAN CORPUSCULAR VOLUME 99 fL (79-100); MONO # 0.6 x10^3/uL (0.0-1.1); MONO % 15 % (0-9); NEUT # 2.1 x10^3uL (1.8-7.7); NEUT % 50 % (31-73); PLATELET COUNT 208 x10^3/uL (140-400); RED BLOOD COUNT 3.45 x10^6/uL (4.30-5.70); RED CELL DISTRIBUTION WIDTH 13.1 % (11.5-14.5); WHITE BLOOD COUNT 4.1 x10^3/uL (4.0-11.0)
--- NOTE | 2019-02-03 07:41 | PDOC2 ---
MAURI GALLARDO JUANI 02/03/19 0741: CARDIAC CONSULT DATE OF CONSULT Date Of Consult DATE: 02/03/19 TIME: 07:36 REASON FOR CONSULT Reason for Consult Chest pain REFERRING PHYSICIAN Referring Physician Chest pain Hypertension SOURCE Source: Chart review, Patient HPI History of Present Illness This is a 78 yo male who presented secondary to chest pain. Patient reports he was sitting watching a football game last night. Had sudden onset of aching pain in his central chest. Associated with dizziness. Had difficulty taking a deep breath. No diaphoresis, palpitations, or nausea/vomiting. Pain was non- radiating. Thought this was GERD so he took TUMs. Pain did not improved so he came to the ED for further evaluation and treatment. Pain did seem to improve wtih belching. Nitro patch was applied. Pain resolved within an hour of arrival. No further pain overnight. Is feeling well this morning. Patient reports he has been feeling extremely well recently. Of note, did have large dinner of [place] sausage with peppers and onions last night around 6 pm. PAST MEDICAL HISTORY Cardiovascular: CAD, HTN, hyperipidemia, Other (cardiac arrest, VT storm, Idiopathic AFIB ) Pulmonary: Other (DEVORA ) GI: GERD Musculoskeletal: Osteoarthritis Endocrine: Hypothyroidism PAST SURGICAL HISTORY Past Surgical History: Appendectomy, Other (AICD) FAMILY HISTORY Family History: Hypertension SOCIAL HISTORY Smoke: No ALCOHOL: none Drugs: None Lives: with Family CURRENT MEDICATIONS Current Medications Current Medications Aspirin (Children'S Aspirin) 324 mg 1X ONCE PO ; Start 02/02/19 at 21:00; Stop 02/02/19 at 21:01; Status DC Morphine Sulfate (Morphine 2mg Syringe) 2 mg 1X ONCE IV ; Start 02/02/19 at 21:00; Stop 02/02/19 at 21:01; Status DC Enoxaparin Sodium (Lovenox 100mg Syringe) 90 mg 1X ONCE SQ Last administered on 02/02/19at 21:10; Start 02/02/19 at 21:00; Stop 02/02/19 at 21:01; Status DC Lactated Ringer's 1,000 ml @ 100 mls/hr Q10H IV Last administered on 02/02/19at 21:11; Start 02/02/19 at 21:00; Stop 02/03/19 at 06:59; Status DC Nitroglycerin (Nitro-Bid Oint) 1 inch 1X ONCE TP Last administered on 02/02/19at 21:10; Start 02/02/19 at 21:00; Stop 02/02/19 at 21:01; Status DC Aspirin (Children'S Aspirin) 81 mg 1X ONCE PO Last administered on 02/02/19at 21:10; Start 02/02/19 at 21:15; Stop 02/02/19 at 21:16; Status DC Ondansetron HCl (Zofran) 4 mg PRN Q4HRS PRN IV NAUSEA/VOMITING; Start 02/02/19 at 21:45; Stop 02/03/19 at 21:44 Morphine Sulfate (Morphine 4mg Syringe) 4 mg PRN Q2HR PRN IV PAIN; Start 02/02/19 at 21:45; Stop 02/03/19 at 21:44 Acetaminophen (Tylenol) 650 mg PRN Q4HRS PRN PO FEVER; Start 02/02/19 at 21: 45; Stop 02/03/19 at 21:44 Albuterol/ Ipratropium (Duoneb) 3 ml RTQID NEB ; Start 02/03/19 at 08:00; Stop 02/03/19 at 04:42; Status DC Enoxaparin Sodium (Lovenox 100mg Syringe) 90 mg BID SQ ; Start 02/03/19 at 09:00; Stop 02/04/19 at 08:59 Nitroglycerin (Nitro-Bid Oint) 0.5 inch TID TP ; Start 02/03/19 at 09:00 Aspirin (Children'S Aspirin) 81 mg DAILY PO ; Start 02/03/19 at 09:00 Info (Anti-Coagulation Monitoring By Pharmacy) 1 each PRN DAILY PRN MC SEE COMMENTS; Start 02/02/19 at 22:00 Active Scripts Active Reported [natural prostate] 1 Cap PO BID [estrodim] 1 Cap PO BID [pectacol] Green Tea Extract (Green Tea Mastic Extract) 150 Mg Capsule 350 Mg PO BID Probiotic (Lactobacillus Combo No.11) 1 Each Cap.sprink 1 Each PO DAILY [place] 3 1,000 Mg Softgel ([place]-3 Fatty Acids/Fish Oil) 1 Each Capsule 1 Each PO DAILY Testosterone Cypionate 200 Mg/1 Ml Vial 1 Ml IM QSA Clopidogrel (Clopidogrel Bisulfate) 75 Mg Tablet 1 Tab PO DAILY Vp Ancillary Thyroid (Thyroid,Pork) 60 Mg Tablet 60 Mg PO DAILY Metoprolol Succinate ( Xl ) (Metoprolol Succinate) 50 Mg Tab.er.24h 1 Tab PO DAILY Niaspan (Niacin) 500 Mg Tab.er.24h 1 Tab PO QHS [glucosamine] [cm core] [d ribose] Vitamin E 400 Unit Capsule 400 Unit PO HS Vitamin C (Ascorbic Acid) 500 Mg Capsule.er 500 Mg PO HS Calcium (Calcium Carbonate) 600 Mg Tablet 600 Mg PO HS B Complex (Vitamin B Complex) 1 Each Tablet 1 Each PO HS D3 + K2 Dots 1,000 Units Tab (Vitamin D3/Vitamin K2) 1 Each Tab.rapdis 1 Each PO 5000 IU EVERY HS Dhea (Prasterone (Dhea)) 25 Mg Tablet 75 Mg PO DAILY Aspirin 81 Mg Tab.chew 81 Mg PO DAILY Magnesium (Magnesium Oxide) 400 Mg Capsule 400 Mg PO DAILY Klor-Con M20 (Potassium Chloride) 20 Meq Tab.er.prt 20 Meq PO DAILY Synthroid (Levothyroxine Sodium) 125 Mcg Tablet 125 Mcg PO DAILY LAST DOSE GIVEN: DATE: 06/01/15 TIME: am NEXT DOSE DUE: DATE:06/02/15 TIME: am [N-Acetyl-D] ALLERGIES Allergies: Coded Allergies: Cephalexin Monohydrate (Verified Allergy, Intermediate, Hives, 07/24/18) amoxicillin trihydrate (Verified Allergy, Intermediate, 07/24/18) cefazolin sodium (Verified Allergy, Intermediate, Hives, 07/24/18) mexiletine (Verified Allergy, Intermediate, 07/24/18) potassium clavulanate (Verified Allergy, Intermediate, 07/24/18) ROS Review of Systems 14 point ROS conducted with pertinent positives noted above in HPI. PHYSICAL EXAM General: Alert, Oriented X3, Cooperative, No acute distress HEENT: Atraumatic Lungs: Clear to auscultation, Normal air movement Heart: Regular rate Abdomen: No tenderness Extremities: No edema, Normal pulses Neuro: Normal speech, Sensation intact Psych/Mental Status: Mental status NL, Mood NL MUSCULOSKELETAL: Osteoarthritic changes both hands VITALS Vital Signs Vital Signs Date Time Temp Pulse Resp B/P (MAP) Pulse Ox O2 Delivery O2 Flow Rate FiO2 02/02/19 23:15 97.5 66 18 123/61 (81) 96 Room Air LABS LABS Laboratory Tests Test 02/02/19 20:36 02/03/19 05:38 White Blood Count 6.3 x10^3/uL (4.0-11.0) 4.1 x10^3/uL (4.0-11.0) Red Blood Count 3.99 x10^6/uL (4.30-5.70) 3.45 x10^6/uL (4.30-5.70) Hemoglobin 13.4 g/dL (13.0-17.5) 11.4 g/dL (13.0-17.5) Hematocrit 39.8 % (39.0-53.0) 34.2 % (39.0-53.0) Mean Corpuscular Volume 100 fL (79-100) 99 fL (79-100) Mean Corpuscular Hemoglobin 34 pg (25-35) 33 pg (25-35) Mean Corpuscular Hemoglobin Concent 34 g/dL (31-37) 33 g/dL (31-37) Red Cell Distribution Width 13.0 % (11.5-14.5) 13.1 % (11.5-14.5) Platelet Count 257 x10^3/uL (140-400) 208 x10^3/uL (140-400) Neutrophils (%) (Auto) 51 % (31-73) 50 % (31-73) Lymphocytes (%) (Auto) 34 % (24-48) 33 % (24-48) Monocytes (%) (Auto) 12 % (0-9) 15 % (0-9) Eosinophils (%) (Auto) 2 % (0-3) 2 % (0-3) Basophils (%) (Auto) 1 % (0-3) 1 % (0-3) Neutrophils # (Auto) 3.2 x10^3uL (1.8-7.7) 2.1 x10^3uL (1.8-7.7) Lymphocytes # (Auto) 2.1 x10^3/uL (1.0-4.8) 1.4 x10^3/uL (1.0-4.8) Monocytes # (Auto) 0.7 x10^3/uL (0.0-1.1) 0.6 x10^3/uL (0.0-1.1) Eosinophils # (Auto) 0.1 x10^3/uL (0.0-0.7) 0.1 x10^3/uL (0.0-0.7) Basophils # (Auto) 0.1 x10^3/uL (0.0-0.2) 0.0 x10^3/uL (0.0-0.2) Prothrombin Time 9.9 SEC (9.4-11.4) Prothromb Time International Ratio 1.0 (0.9-1.1) Activated Partial Thromboplast Time 25 SEC (23-33) D-Dimer (Cammy) 0.43 mg/L (0.00-0.50) Sodium Level 141 mmol/L (136-145) 143 mmol/L (136-145) Potassium Level 4.5 mmol/L (3.5-5.1) 3.8 mmol/L (3.5-5.1) Chloride Level 104 mmol/L (98-107) 107 mmol/L (98-107) Carbon Dioxide Level 29 mmol/L (21-32) 29 mmol/L (21-32) Anion Gap 8 (6-14) 7 (6-14) Blood Urea Nitrogen 17 mg/dL (8-26) 17 mg/dL (8-26) Creatinine 1.2 mg/dL (0.7-1.3) 1.0 mg/dL (0.7-1.3) Estimated GFR (Cockcroft-Gault) 58.6 72.3 Glucose Level 124 mg/dL (70-99) 85 mg/dL (70-99) Calcium Level 9.2 mg/dL (8.5-10.1) 8.7 mg/dL (8.5-10.1) Magnesium Level 2.2 mg/dL (1.8-2.4) Total Bilirubin 0.2 mg/dL (0.2-1.0) Direct Bilirubin 0.1 mg/dL (0.0-0.2) Aspartate Amino Transf (AST/SGOT) 29 U/L (15-37) Alanine Aminotransferase (ALT/SGPT) 24 U/L (16-63) Alkaline Phosphatase 72 U/L (46-116) Creatine Kinase 136 U/L (39-308) Troponin I Quantitative < 0.017 ng/mL (0-0.055) QY-Ljs-J-Type Natriuretic Peptide 457 pg/mL (0-449) Total Protein 7.3 g/dL (6.4-8.2) Albumin 4.0 g/dL (3.4-5.0) Lipase 120 U/L (73-393) ECHOCARDIOGRAM Echocardiogram <Conclusion> The left ventricular systolic function is normal and the ejection fraction is within normal range. The Ejection Fraction is 55%. There is normal LV segmental wall motion. Septal motion consistent with conduction abnormality. ICD lead noted in RA/RV. The right ventricle is borderline dilated. DATE: 03/14/18 180 HEART CATH Heart Cath CORONARY ANGIOGRAPHY: LM is a large caliber vessel with a mid 30% stenosis followed by mid to distal ectasia. LAD is a large caliber vessel proximally and rapidly tapers to a small size vessel after the 1st diagonal. There is a mid 90% stenosis after the diagonal. D1 is a moderate caliber vessel with mild luminal irregularities. LCx is a moderate caliber non-dominant vessel with grossly normal appearance. 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 OM1 is a moderate caliber vessel with normal angiographic appearance. RCA is a large caliber dominant vessel with mild luminal irregularities. RPDA/RPL are moderate caliber vessels with mild luminal irregularities. Conclusion 1. Cardiac arrest and subsequent shock due to VT/VF storm 2. One-vessel critical LAD stenosis status post PCI with a 3.5 x 22 mm drug- eluting stent postdilated with a 4.0 mm noncompliant balloon. 3. Normal left ventricular filling pressures Recommendations Aspirin 81 mg daily Ticagrelor 90 mg twice a day Continue statin therapy. Continue amiodarone and esmolol. We will wean off the procainamide drip over the next 12 hours. Supportive care for now. Discussed with family. DATE: 03/13/18 7353 ASSESSMENT/PLAN Assessment/Plan 1. Chest pain, atypical. Initial troponin negative. Possibly r/o GERD 2. Hx of CAD and VT storm; s/p PCI/ANUJA to LAD 02/2018. No acute event on t elemetry. 3. Idiopathic Vfib; s/p AICD ([employer]). Scheduled for gen change next month. Device interrogation with normal function. No significant arrhythmias noted 4. Hypertension 5. Hyperlipidemia 6. GERD Recommendations Trend troponin Echo to assess LV systolic function Continue secondary prevention measures. PPI If troponin and echo WNL, may discharge from a CV standpoint and f/u on an outpatient basis MIREYA CORTEZ MD 02/04/19 0820: CARDIAC CONSULT ASSESSMENT/PLAN Assessment/Plan Late entry for 02/03/2019 Pt. seen and examined. 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 No significant cardiac issues. Trop, EKG and echo wnl. He looks and feels well. Ok to DC from CV standpoint. MAURI GALLARDO APRN Feb 03, 2019 07:41 MIREYA CORTEZ MD Feb 04, 2019 08:20
[2019-02-03 08:00] VITALS: BP 101/56
[2019-02-03] MEDS ORDERED: IPRATRPIUM/ALBUTEROL 0.5/2.5MG 3 ML NEBU. NEB SCH (08:00)
[2019-02-03] MEDS: NITROGLYCERIN OINT 1 GM PACKET. TP SCH ×2 (08:41→13:55)
[2019-02-03] MEDS ORDERED: ENOXAPARIN ** NOTE DOSE ** SYRINGE SQ SCH (09:00)
[2019-02-03] MEDS ORDERED: ASPIRIN 81 MG TAB.CHEW PO SCH (09:00)
[2019-02-03 11:00] VITALS: BP 97/44
[2019-02-03 11:30] VITALS: BP 106/60
[2019-02-03 13:01] LABS: BARBITURATES NEG (NEG); BENZODIAZEPINES NEG (NEG); CANNABINOIDS NEG (NEG); COCAINE NEG (NEG); METHADONE NEG (NEG); OPIATES NEG (NEG); PHENCYCLIDINE NEG (NEG)
[2019-02-03 13:02] LABS: AMPHETAMINE/METHAMPHETAMINE NEG (NEG)
[2019-02-03 13:07] LABS: BILIRUBIN,URINE NEG (NEG); CLARITY,URINE CLEAR; COLOR,URINE YELLOW; GLUCOSE,URINE NEG (NEG); NITRITE,URINE NEG (NEG); RBC,URINE 0 /HPF (0-2); UROBILINOGEN,URINE 0.2 mg/dL (0.2 mg/dL)
[2019-02-03 13:08] LABS: BACTERIA,URINE FEW /HPF (0-FEW); SQUAMOUS EPITHELIAL CELL,UR OCC /LPF
[2019-02-03 13:32] LABS: THYROID STIM HORMONE (TSH) 0.386 uIU/mL (0.358-3.740)
--- NOTE | 2019-02-03 13:48 | CARD ---
MR#: [id number] Date of Study: 02/03/2019 Ordering Physician: MAURI GALLARDO, Referring Physician: MAURI GALLARDO, Tech: Teressa Vargas VASHTI APPROVED REPORT EXAM: Two-dimensional and M-mode echocardiogram with Doppler and color Doppler. Other Information Quality : AverageHR: 74bpm Rhythm : NSR INDICATION CAD 2D DIMENSIONS RVDd4.0 (2.9-3.5cm)Left Atrium(2D)4.5 (1.6-4.0cm) IVSd1.5 (0.7-1.1cm)Aortic Root(2D)3.6 (2.0-3.7cm) LVDd4.6 (3.9-5.9cm)PWd1.0 (0.7-1.1cm) LVDs3.3 (2.5-4.0cm)FS (%) 27.6 % SV51.9 mlLVEF(%)53.6 (>50%) M-Mode DIMENSIONS Left Atrium(MM)4.40 (2.5-4.0cm)Aortic Root3.11 (2.2-3.7cm) Aortic Cusp Exc2.30 (1.5-2.0cm) Aortic Valve AoV Peak Alvin.128.7cm/sAoV VTI24.8cm AO Peak GR.6.6mmHgAO Mean GR.3mmHg LOKESH (VTI)2.87cm2 Mitral Valve MV E Fnnkbhhs49.7cm/sMV DECEL [id number] MV A Frjlwuzg88.7cm/sE/A Ratio1.1 MV A Ptwgfvkw94lm Tricuspid Valve TR P. Uofgppda484hi/sRAP WFBEKOIN3uqYd TR Peak Gr.70yqOzFIFM64udBz LEFT VENTRICLE The left ventricle is normal size. There is mild concentric left ventricular hypertrophy. The left ve ntricular systolic function is normal. The Ejection Fraction is 55-60%. There is normal LV segmental wall motion. Transmitral Doppler flow pattern is Grade II-pseudonormal filling dynamics. RIGHT VENTRICLE The right ventricle is mildly dilated. There is normal right ventricular wall thickness. The right ve ntricular systolic function is normal. Pacer lead noted in RV/RA. ATRIA The left atrium is mildly dilated. The right atrium is mildly dilated. The interatrial septum is inta ct with no evidence for an atrial septal defect or patent foramen ovale as noted on 2-D or Doppler im aging. AORTIC VALVE The aortic valve is thickened but opens well. The aortic valve is trileaflet. Doppler and Color Flow revealed no significant aortic regurgitation. There is no significant aortic valvular stenosis. There is no aortic valvular vegetation. MITRAL VALVE The mitral valve is thickened but opens well. There is no evidence of mitral valve prolapse. There is no mitral valve stenosis. Doppler and Color-flow revealed trace mitral regurgitation. TRICUSPID VALVE The tricuspid valve is normal in structure and function. Doppler and Color Flow revealed trace tricus pid regurgitation. The PA pressure was estimated at 30 mmHg. There is no tricuspid valve prolapse or vegetation. There is no tricuspid valve stenosis. PULMONIC VALVE The pulmonic valve is not well visualized. GREAT VESSELS The aortic root is normal in size. The ascending aorta is normal in size. The IVC is normal in size a nd collapses >50% with inspiration. PERICARDIAL EFFUSION There is no evidence of significant pericardial effusion. Critical Notification Critical Value: No <Conclusion> The left ventricular systolic function is normal. The Ejection Fraction is 55-60%. There is normal LV segmental wall motion. Pacer lead noted in RV/RA. Trace mitral regurgitation. Trace tricuspid regurgitation. The PA pressure was estimated at 30 mmHg. There is no evidence of significant pericardial effusion. Signed by : Stanislaw Sibley, Electronically Approved : 02/03/2019 13:47:51
[2019-02-03 15:03] VITALS: BP 111/48
--- NOTE | 2019-02-03 16:16 | SSS ---
ADMIT DATE: 02/03/2019 HISTORY OF PRESENT ILLNESS: The patient is a 78-year-old male patient who came to the Emergency Room complaining of chest pain. The patient reports he was sitting watching a football game, had sudden onset of aching pain in his central chest associated with dizziness and difficulty taking a deep breath. No diaphoresis, no palpitation, no nausea or vomiting. Pain was not radiating and told this was acid reflux and he took actually Tums, pain did not improve, so he came to the Emergency Room for further evaluation and treatment. He did seem to have improved, but nitropatch was applied and the pain has resolved an hour of arrival and has had no further pain overnight. He is feeling well. He has had 3 sets of cardiac enzymes, all within normal limit. He has had an echocardiogram, which showed that his left ventricular systolic function is normal, ejection fraction is 55-60%, has normal left ventricular segmental wall motion and the pacer lead noted in the right ventricle, right atrium, trace mitral regurgitation, trace tricuspid regurgitation. Pulmonary artery pressure was estimated at 30 mm per hour. There is no evidence of significant pericardial effusion. He was evaluated by the graphic design intern and a decision was made to discharge him home. PAST MEDICAL HISTORY: Significant for coronary artery disease, hypertension, hyperlipidemia, apparently had had a cardiac arrest and ventricular tachycardia storm, idiopathic atrial fibrillation, obstructive sleep apnea, gastroesophageal reflux disease, hypothyroidism, and osteoarthritis. PAST SURGICAL HISTORY: Significant for appendectomy and AICD placement. FAMILY HISTORY: Positive for hypertension. SOCIAL HISTORY: He lives with his . He does not smoke, drink alcohol or use any recreational drugs. ALLERGIES: He is allergic to CEPHALEXIN, MONOHYDRATE, AMOXICILLIN, CEFAZOLIN, MEXILETINE and POTASSIUM CLAVULANATE. MEDICATIONS: He is currently on following medications: He was on Plavix 75 mg once a day, niacin extended release 500 mg at bedtime, omega-3 fatty acid 1000 mg once a day, metoprolol succinate 50 mg once a day, aspirin 81 mg once a day, calcium carbonate 600 mg at bedtime, potassium chloride for Klor-Con 20 mEq once a day, magnesium oxide 400 mg once a day, Lactobacillus probiotic 1 tablet once a day, testosterone cypionate 200 mg in 1 mL vial once a week every Saturday, levothyroxine sodium 125 mcg once a day, thyroid pork 60 mg daily, vitamin B complex one tablet once a day, ascorbic acid 500 mg once a day, vitamin D with vitamin K2 1000 International Units once a day, vitamin E 400 units at bedtime, green tea leaf extract 350 mg twice a day, Prasterone 75 mg once a day. PHYSICAL EXAMINATION: GENERAL: On arrival to the Emergency Room, the patient looked well and was clearly in no apparent respiratory distress. ____ no jaundice, cyanosis or thyromegaly. No jugular venous distention. No limb edema. VITAL SIGNS: His heart rate was 68, blood pressure was 109/54, temperature was 97.7, respiratory rate was 18 and oxygen saturation was 97%. HEAD, EYES, EARS, NOSE AND THROAT: Showed normocephalic, atraumatic. NECK: Supple. HEART: Showed normal first and second heart sounds. No gallop, rub or murmur. CHEST: Clear to auscultation. No crepitation or rhonchi. ABDOMEN: Distended, soft, nontender. NEUROLOGIC: He was awake, alert, responding appropriately. All cranial nerves intact. EXTREMITIES: He moves extremities without difficulty. He ambulates without assistance or assistive devices. LABORATORY DATA: His lab work showed a white cell count of 4100, hemoglobin 11, hematocrit 34, MCV 99 and platelet count 208,000. His chemistry showed a serum sodium 143, potassium 3.8, chloride 107, bicarbonate 29, anion gap of 7, BUN 17, creatinine 1, estimated GFR was 72 mL per minute, his glucose was 85, calcium was 8.7. He has 3 sets of cardiac enzymes, which showed troponin to be less than 0.017. His triglyceride was 289, total cholesterol 160, LDL was 55, VLDL was 57, HDL was 48 and ratio was 3. His TSH was normal at 0.386. His prothrombin time, INR, aPTT and D-dimer are all normal. Urinalysis was unremarkable. Toxic screen was negative. His chest x-ray showed that there is no acute process. The patient was discharged home to continue on ascorbic acid 500 mg once a day, aspirin 81 mg once a day, calcium carbonate 600 mg at bedtime, Plavix 75 mg once a day, Lactobacillus probiotic 1 tablet once a day, levothyroxine sodium 125 mcg once a day, magnesium oxide 400 mg once a day, metoprolol succinate 50 mg once a day, niacin 500 mg at bedtime, omega-3 fatty acid 1000 mg once a day, potassium chloride 20 mEq once a day, testosterone cypionate 200 mg in 1 mL vial intramuscular once a week, thyroid pork 60 mg once a day, vitamin B complex once a day and vitamin E 400 mg once a day. FINAL DISCHARGE DIAGNOSES: Chest pain, atypical, myocardial infarction was ruled out. History of coronary artery disease and ventricular tachycardia storm, status post PCI and drug-eluting stent to left anterior descending in 02/2018. Idiopathic ventricular fibrillation, status post AICD; hypertension; hyperlipidemia; hypothyroidism. ALESSIO MENARD MD DR: RAMSEY/sandra JOB#: [id number] / [id number]
--- NOTE | 2019-02-04 06:41 | EKG ---
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
== END 2019-02-03 15:50 | disposition home or self-care (01) | DRG 313 ==
LOC: ER 20:27 → ICU 21:30
PROVIDERS: ADMIT Internal Medicine; ATTEND Internal Medicine
DX: R07.89 Other chest pain (principal); I49.01 Ventricular fibrillation; E11.9 Type 2 diabetes mellitus without complications; I10 Essential (primary) hypertension; E03.9 Hypothyroidism, unspecified; E78.5 Hyperlipidemia, unspecified; G47.33 Obstructive sleep apnea (adult) (pediatric); I25.10 Atherosclerotic heart disease of native coronary artery without angina pectoris; I48.91 Unspecified atrial fibrillation; M19.90 Unspecified osteoarthritis, unspecified site; K21.9 Gastro-esophageal reflux disease without esophagitis; Z82.49 Family history of ischemic heart disease and other diseases of the circulatory system; Z86.74 Personal history of sudden cardiac arrest; Z90.49 Acquired absence of other specified parts of digestive tract; Z95.5 Presence of coronary angioplasty implant and graft; Z95.810 Presence of automatic (implantable) cardiac defibrillator; Z96.659 Presence of unspecified artificial knee joint; I25.2 Old myocardial infarction; Z88.1 Allergy status to other antibiotic agents; Z88.8 Allergy status to other drugs, medicaments and biological substances
CPT/HCPCS: 36415; 71045; 80048; 80061; 80076; 80307; 81001; 82550; 83690; 83735; 83880; 84443; 84484; 85025; 85379; 85610; 85730; 87086; 93005; 93306; J1650; J7120

== ENCOUNTER → 2019-05-07 | Outpatient (CLI) | payer MEDICARE, BC ==
[~2019-05-07] MED LIST changes: +MECL-75 PO; -MECL25TA3 PO; +[UNRECOGNIZED DRUG - OTHER]
[2019-05-07 19:07] LABS: BASO % 1 % (0-3); EOS # 0.1 x10^3/uL (0.0-0.7); EOS % 1 % (0-3); HEMATOCRIT 39.2 % (39.0-53.0); HEMOGLOBIN 13.3 g/dL (13.0-17.5); LYMPH # 1.4 x10^3/uL (1.0-4.8); LYMPH % 27 % (24-48); MEAN CORPUSCULAR HEMOGLOBIN 33 pg (25-35); MEAN CORPUSCULAR HGB CONC 34 g/dL (31-37); MEAN CORPUSCULAR VOLUME 98 fL (79-100); MONO # 0.6 x10^3/uL (0.0-1.1); MONO % 13 % (0-9); NEUT % 59 % (31-73); PLATELET COUNT 289 x10^3/uL (140-400); RED BLOOD COUNT 4.01 x10^6/uL (4.30-5.70); WHITE BLOOD COUNT 5.1 x10^3/uL (4.0-11.0)
[2019-05-07 19:21] LABS: CALCIUM 8.6 mg/dL (8.5-10.1); CREATININE 0.9 mg/dL (0.7-1.3); GFR 81.6; POTASSIUM 4.4 mmol/L (3.5-5.1)
[2019-05-07 19:28] LABS: ALBUMIN/GLOBULIN RATIO 1.3 (1.0-1.7); TOTAL BILIRUBIN 0.5 mg/dL (0.2-1.0); TOTAL PROTEIN 7.2 g/dL (6.4-8.2)
== END | disposition home or self-care (01) ==
LOC: LAB 18:03
PROVIDERS: ATTEND Registered Nurse
DX: R35.0 Frequency of micturition (principal); R53.1 Weakness; R53.83 Other fatigue
CPT/HCPCS: 36415; 80053; 84443; 85025

== ENCOUNTER 2019-12-21 20:16 | Emergency (ER) | payer MEDICARE, BC ==
[~2019-12-21] VITALS: Ht 170.2 cm; Wt 90.0 kg
[~2019-12-21 20:16] MED LIST changes: -CALC600T4 PO; +CALC600T6 PO
--- NOTE | 2019-12-21 20:36 | PHYS DOC ---
Past History Past Medical History: CAD, Diabetes, Heart Disease, Hypothyroid Additional Past Medical Histor: idiopathic ventric tachycardia Past Surgical History: Angioplasty, Appendectomy, Knee Replacement, Other Additional Past Surgical Histo: bilat knee surgery, pacemaker is also difb, CARDIAC STENT Alcohol Use: None Drug Use: None General Adult EDM: Chief Complaint: CHEST PAIN HPI: HPI: 79-year-old male presents with concern that his defibrillator went off. The patient was taking a nap when he was woken from his sleep and "jumped out of my chair". He thinks that the defibrillator went off around 430. He has had a feeling of being flush along his head since that time. He has had the defibrillator go off multiple times in the past and he has that same flushed feeling. He had an ablation last year that eliminated the issues causing the defibrillator to go off. He has not had a defibrillator fire for at least a year. Patient denies fever chills. He was feeling great prior to this episode. No current chest pain. Review of Systems: Review of Systems: Constitutional: Denies fever or chills Eyes: Denies change in visual acuity HENT: Denies nasal congestion or sore throat Respiratory: Denies cough or shortness of breath Cardiovascular: Defibrillator firing GI: Denies abdominal pain, nausea, vomiting, bloody stools or diarrhea : Denies dysuria Musculoskeletal: Denies back pain or joint pain Integument: Denies rash Neurologic: Denies headache, focal weakness or sensory changes Endocrine: Denies polyuria or polydipsia Lymphatic: Denies swollen glands Psychiatric: Denies depression or anxiety Heart Score: Risk Factors: Risk Factors: DM, Current or recent (<one month) smoker, HTN, HLP, family history of CAD, obesity. Risk Scores: Score 0 - 3: 2.5% MACE over next 6 weeks - Discharge Home Score 4 - 6: 20.3% MACE over next 6 weeks - Admit for Clinical Observation Score 7 - 10: 72.7% MACE over next 6 weeks - Early Invasive Strategies Allergies: Allergies: Allergies Coded Allergies Type Severity Reaction Last Updated Verified Cephalexin Monohydrate Allergy Intermediate Hives 07/24/18 Yes amoxicillin trihydrate Allergy Intermediate 07/24/18 Yes cefazolin sodium Allergy Intermediate Hives 07/24/18 Yes mexiletine Allergy Intermediate 07/24/18 Yes potassium clavulanate Allergy Intermediate 07/24/18 Yes Physical Exam: PE: Constitutional: Well developed, well nourished, no acute distress, non-toxic appearance. [] HENT: Normocephalic, atraumatic, bilateral external ears normal, oropharynx moist, no oral exudates, nose normal. [] Eyes: PERRLA, EOMI, conjunctiva normal, no discharge. [] Neck: Normal range of motion, no tenderness, supple, no stridor. [] Cardiovascular: Heart rate regular rhythm, no murmur [] Lungs & Thorax: Bilateral breath sounds clear to auscultation [] Abdomen: Bowel sounds normal, soft, no tenderness, no masses, no pulsatile masses. [] Skin: Warm, dry, no erythema, no rash. [] Back: No tenderness, no CVA tenderness. [] Extremities: No tenderness, no cyanosis, no clubbing, ROM intact, no edema. [] Neurologic: Alert and oriented X 3, normal motor function, normal sensory function, no focal deficits noted. [] Psychologic: Affect normal, judgement normal, mood concerned. [] EKG: EKG: Sinus rhythm, rate 79, leftward axis, no ST elevations or depressions. [] Radiology/Procedures: Radiology/Procedures: [] Impressions: Chest AP portable at 2009: Reason for examination: Chest pain. Comparison is made to previous study dated 02/02/2019. Pacemaker is present over the left hemithorax with leads extending to the right atrium and right ventricle. Retained leads are present on the right. Heart and mediastinum are unchanged. Lung olivier are clear. No acute bony abnormalities are seen. IMPRESSION: No acute cardiopulmonary disease. Electronically signed by: Elisa Moreau MD (12/21/2019 8:51 PM) [facility] DI[facility] AND SIGNED BY: ELISA MOREAU MD DATE: 12/21/192050 CC: RAJESH TORRES DO; GARY BROOKS Course & Med Decision Making: Course & Med Decision Making Pertinent Labs and Imaging studies reviewed. (See chart for details) The patient's labs are unremarkable. His troponin is negative. His EKG is unremarkable. His chest x-ray is unremarkable. We are interrogating his pacemaker. His pacemaker interrogation does not show defibrillator discharge. My exactly sure what happened earlier today. The patient does not meet any admission criteria. I believe that he is stable for discharge at this time. [] Dragon Disclaimer: Dragon Disclaimer: This electronic medical record was generated, in whole or in part, using a voice recognition dictation system. Departure Departure: Impression: Primary Impression: Atypical chest pain Disposition: HOME/RESIDENCE PRIOR TO ADM Condition: STABLE Referrals: GARY BROOKS (PCP) Patient Instructions: Chest Pain (Nonspecific), [id number] Justification of Admission: Justification of Admission: Justification of Admission Dx: N/A RAJESH TORRES DO Dec 21, 2019 20:36
[2019-12-21 20:52] LABS: BASO # 0.1 x10^3/uL (0.0-0.2); BASO % 1 % (0-3); EOS # 0.1 x10^3/uL (0.0-0.7); EOS % 1 % (0-3); HEMATOCRIT 36.7 % (39.0-53.0); HEMOGLOBIN 12.7 g/dL (13.0-17.5); LYMPH # 1.5 x10^3/uL (1.0-4.8); LYMPH % 22 % (24-48); MEAN CORPUSCULAR HEMOGLOBIN 35 pg (25-35); MEAN CORPUSCULAR HGB CONC 35 g/dL (31-37); MEAN CORPUSCULAR VOLUME 100 fL (79-100); MONO # 0.6 x10^3/uL (0.0-1.1); MONO % 9 % (0-9); NEUT # 4.4 x10^3uL (1.8-7.7); NEUT % 67 % (31-73); PLATELET COUNT 279 x10^3/uL (140-400); RED BLOOD COUNT 3.67 x10^6/uL (4.30-5.70); RED CELL DISTRIBUTION WIDTH 13.1 % (11.5-14.5); WHITE BLOOD COUNT 6.7 x10^3/uL (4.0-11.0)
--- NOTE | 2019-12-21 20:54 | RAD ---
Chest AP portable at 2009: Reason for examination: Chest pain. Comparison is made to previous study dated 02/02/2019. Pacemaker is present over the left hemithorax with leads extending to the right atrium and right ventricle. Retained leads are present on the right. Heart and mediastinum are unchanged. Lung olivier are clear. No acute bony abnormalities are seen. IMPRESSION: No acute cardiopulmonary disease. Electronically signed by: Elisa Hussein MD (12/21/2019 8:51 PM) LISA
[2019-12-21 21:03] LABS: CALCIUM 9.2 mg/dL (8.5-10.1); CREATININE 1.2 mg/dL (0.7-1.3); GFR 58.4; POTASSIUM 4.3 mmol/L (3.5-5.1)
[2019-12-21 21:09] LABS: ALBUMIN 3.9 g/dL (3.4-5.0); ALBUMIN/GLOBULIN RATIO 1.2 (1.0-1.7); TOTAL BILIRUBIN 0.3 mg/dL (0.2-1.0); TOTAL PROTEIN 7.1 g/dL (6.4-8.2)
[2019-12-21 21:32] VITALS: BP 161/91
[2019-12-21 22:28] LABS: BACTERIA,URINE 0 /HPF (0-FEW); BILIRUBIN,URINE NEG (NEG); CLARITY,URINE CLOUDY; COLOR,URINE YELLOW; GLUCOSE,URINE NEG (NEG); NITRITE,URINE NEG (NEG); RBC,URINE >40 /HPF (0-2); SQUAMOUS EPITHELIAL CELL,UR OCC /LPF; UROBILINOGEN,URINE 0.2 mg/dL (0.2 mg/dL)
--- NOTE | 2019-12-22 06:30 | EKG ---
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
--- NOTE | 2020-01-01 16:12 | EKG ---
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
== END 2019-12-21 23:34 | disposition home or self-care (01) ==
LOC: ER 20:16
DX: R07.89 Other chest pain (principal); I25.10 Atherosclerotic heart disease of native coronary artery without angina pectoris; E11.9 Type 2 diabetes mellitus without complications; E03.9 Hypothyroidism, unspecified; Z98.61 Coronary angioplasty status; Z95.0 Presence of cardiac pacemaker; Z88.1 Allergy status to other antibiotic agents; Z88.8 Allergy status to other drugs, medicaments and biological substances
CPT/HCPCS: 36415; 71045; 80053; 81001; 84484; 85025; 93005; 99285

== ENCOUNTER → 2020-02-26 | Outpatient (CLI) | payer MEDICARE, BC ==
--- NOTE | 2020-02-26 16:46 | RAD ---
EXAM: AP, lateral and tangential patellar views of the left knee DATE: 02/26/2020 12:00 AM INDICATION: LEFT KNEE PAIN COMPARISON: No Prior FINDINGS: No evidence of acute fracture or dislocation.Neutral patellar tracking. No joint effusion. Left knee joint osteoarthritis with severe medial compartment joint space narrowing and tricompartmental osteophytes. Prepatellar soft tissue swelling. IMPRESSION: 1. No evidence of acute fracture or dislocation. 2. Left knee joint osteoarthritis Electronically signed by: Hari Castro MD (02/26/2020 4:43 PM) ALONSO
== END ==
LOC: DXRAD 14:10
DX: M17.12 Unilateral primary osteoarthritis, left knee (principal); M25.762 Osteophyte, left knee
CPT/HCPCS: 73562

== ENCOUNTER 2020-04-14 12:01 | Observation (INO) | payer MEDICARE, BC ==
[~2020-04-14] VITALS: Ht 177.8 cm; Wt 89.9 kg
--- NOTE | 2020-04-14 12:20 | EKG ---
[address] [address] Test Date: 2020-04-14 Test Time: 12:11:08 Pat Name: JORGE MELARA Department: Room: Gender: M [facility]ician [facility] : 1940 Requested By: PEARL OLIVAS Order Number: [id number] Reading MD: Measurements Intervals [place] Rate: 85 P: 90 [place]: 152 QRS: -54 QRSD: 112 T: 65 QT: 346 QTc: 417 Interpretive Statements SINUS RHYTHM VENTRICULAR PREMATURE COMPLEX(ES), TRIGEMINY ABNORMAL LEFT AXIS DEVIATION T ABNORMALITY IN HIGH LATERAL LEADS ABNORMAL ECG RI6.02 No previous ECG available for comparison
--- NOTE | 2020-04-14 12:24 | PHYS DOC ---
Past History Past Medical History: CAD, Diabetes, Heart Disease, Hypothyroid Additional Past Medical Histor: idiopathic ventric tachycardia Past Surgical History: Angioplasty, Appendectomy, Knee Replacement, Other Additional Past Surgical Histo: bilat knee surgery, pacemaker is also difb, CARDIAC STENT Alcohol Use: None Drug Use: None Adult General Chief Complaint Chief Complaint: SYNCOPE HPI HPI Patient is a 79-year-old male who presents for concern of defibrillator malfunction. Patient reports laying on ground performing sit ups when shortly afterwards became very lightheaded and had presyncopal event. Had prodromal symptoms of lightheadedness, felt extremely dizzy, diaphoretic and nauseous and lowered himself back down to the floor. He subsequently reported this to significant other who transported him urgently to our facility for evaluation. Patient has had waxing and waning episodes of lightheadedness and dizziness since initial onset. He is also described vague chest pressure without radiation, no ripping or tearing. He does not know his of his defibrillator has fired. States he takes a baby aspirin daily, no other anticoagulants. He is covered in outpatient setting by Dr. Colvin. Denies any other concerning symptoms such as fever, recent febrile illness, headache, shortness of breath, productive cough, abdominal pain, urinary symptoms. He has significant cardiac history, sees Dr. Colvin and other EP in outpatient setting, has dual pacemaker/defibrillator in place that he felt has not fired today, currently takes 81 mg aspirin only Review of Systems Review of Systems Fourteen body systems of review of systems have been reviewed. See HPI for pertinent positives and negative responses, other payne all other systems are negative, non-pertinent or non-contributory Allergies Allergies Allergies Coded Allergies Type Severity Reaction Last Updated Verified Cephalexin Monohydrate Allergy Intermediate Hives 07/24/18 Yes amoxicillin trihydrate Allergy Intermediate 07/24/18 Yes cefazolin sodium Allergy Intermediate Hives 07/24/18 Yes mexiletine Allergy Intermediate 07/24/18 Yes potassium clavulanate Allergy Intermediate 07/24/18 Yes Physical Exam Physical Exam Constitutional: Well developed, well nourished, no acute distress, non-toxic appearance. HENT: Normocephalic, atraumatic, bilateral external ears normal, oropharynx moist, no oral exudates, nose normal. Eyes: PERRLA, EOMI, conjunctiva normal, no discharge. Neck: Normal range of motion, no tenderness, supple, no stridor. Cardiovascular: Heart rate regular, sinus rhythm, no murmurs rubs or gallops Lungs & Thorax: Bilateral breath sounds clear to auscultation Abdomen: Bowel sounds normal, soft, no tenderness, no masses, no pulsatile masses. Nonsurgical abdomen, no peritoneal signs Skin: Warm, dry, no erythema, no rash. Back: No tenderness, no CVA tenderness. Extremities: No tenderness, no cyanosis, no clubbing, ROM intact, no edema. Neurologic: Alert and oriented X 3, grossly normal motor & sensory function, no focal deficits noted. Psychologic: Affect normal, judgement normal, mood normal. Current Patient Data Vital Signs Vital Signs Date Time Temp Pulse Resp B/P (MAP) Pulse Ox O2 Delivery O2 Flow Rate FiO2 04/14/20 16:47 97.4 73 18 125/74 (91) 96 Room Air Lab Results Laboratory Tests Test 04/14/20 12:13 04/14/20 14:37 White Blood Count 5.9 x10^3/uL (4.0-11.0) Red Blood Count 4.28 x10^6/uL (4.30-5.70) Hemoglobin 14.0 g/dL (13.0-17.5) Hematocrit 42.4 % (39.0-53.0) Mean Corpuscular Volume 99 fL (79-100) Mean Corpuscular Hemoglobin 33 pg (25-35) Mean Corpuscular Hemoglobin Concent 33 g/dL (31-37) Red Cell Distribution Width 13.1 % (11.5-14.5) Platelet Count 272 x10^3/uL (140-400) Neutrophils (%) (Auto) 56 % (31-73) Lymphocytes (%) (Auto) 31 % (24-48) Monocytes (%) (Auto) 11 % (0-9) Eosinophils (%) (Auto) 1 % (0-3) Basophils (%) (Auto) 1 % (0-3) Neutrophils # (Auto) 3.3 x10^3uL (1.8-7.7) Lymphocytes # (Auto) 1.8 x10^3/uL (1.0-4.8) Monocytes # (Auto) 0.6 x10^3/uL (0.0-1.1) Eosinophils # (Auto) 0.1 x10^3/uL (0.0-0.7) Basophils # (Auto) 0.1 x10^3/uL (0.0-0.2) Sodium Level 138 mmol/L (136-145) Potassium Level 4.2 mmol/L (3.5-5.1) Chloride Level 102 mmol/L (98-107) Carbon Dioxide Level 27 mmol/L (21-32) Anion Gap 9 (6-14) Blood Urea Nitrogen 15 mg/dL (8-26) Creatinine 1.2 mg/dL (0.7-1.3) Estimated GFR (Cockcroft-Gault) 58.4 Glucose Level 121 mg/dL (70-99) Calcium Level 8.9 mg/dL (8.5-10.1) Magnesium Level 2.0 mg/dL (1.8-2.4) Creatine Kinase 108 U/L (39-308) Troponin I Quantitative < 0.017 ng/mL (0-0.055) CI-Cgo-S-Type Natriuretic Peptide 353 pg/mL (0-449) Urine Collection Type Void Urine Color Yellow Urine Clarity Hazy Urine pH 8.5 Urine Specific [place] 1.020 Urine Protein Neg (NEG-TRACE) Urine Glucose (UA) Neg mg/dL (NEG) Urine Ketones (Stick) Neg mg/dL (NEG) Urine Blood Neg (NEG) Urine Nitrite Neg (NEG) Urine Bilirubin Neg (NEG) Urine Urobilinogen Dipstick 0.2 mg/dL (0.2 mg/dL) Urine Leukocyte Esterase Neg (NEG) Urine RBC Occ /HPF (0-2) Urine WBC Occ /HPF (0-4) Urine Squamous Epithelial Cells Occ /LPF Urine Bacteria 0 /HPF (0-FEW) EKG EKG EKG ordered and interpreted by myself at 1215 hrs. as sinus rhythm at 85 bpm, unremarkable intervals, left axis deviation, PVCs present without any obvious acute ischemic findings, no STEMI EKG above compared to prior EKG performed December 21, 2019, no obvious changes Radiology/Procedures Radiology/Procedures EXAM: XR CHEST 1V INDICATION: Reason: CHEST PAIN / Spl. Instructions: / History: . TECHNIQUE: Single view COMPARISON: 12/21/2019 chest x-ray FINDINGS: Left chest multichamber AICD is redemonstrated with additional abandoned leads in the right chest similar to prior. The heart size is normal. The great vessels appear unremarkable. There is no hilar or mediastinal mass. The lungs are clear. There is no pleural effusion or pneumothorax. There are no significant osseous abnormalities. IMPRESSION: No active cardiopulmonary disease. Electronically signed by: Nicole Brewer MD (04/14/2020 12:33 PM) [id number] Heart Score HEART Score for Chest Pain: HEART Score for Chest Pain Response (Comments) Value History Highly Suspicious 2 ECG Nonspecific Repolarizatio 1 Age > 65 2 Risk Factors >3 Risk Factors or Hx CAD 2 Total 7 Risk Factors: Risk Factors: DM, Current or recent (<one month) smoker, HTN, HLP, family history of CAD, obesity. Risk Scores: Risk Factors: DM, Current or recent (<one month) smoker, HTN, HLP, family history of CAD, obesity. Course & Med Decision Making Course & Med Decision Making Pertinent Labs and Imaging studies reviewed. (See chart for details) No obvious acute/emergent/surgical pathology present. Nonetheless patient extremely high risk for adverse cardiac events. Patient's cardiology group contacted at [facility] and case discussed, they agreed with current management and advised hospital admission for cardiac observation with pacemaker interrogation planned I contacted Dr. Corrales who agreed for hospital admission under his care at [facility] I updated patient on proposed plan of care and he was amenable for admission. All questions and concerns addressed prior to ER transport [facility] for admission Dragon Disclaimer Dragon Disclaimer This electronic medical record was generated, in whole or in part, using a voice recognition dictation system. Departure Departure: Impression: Primary Impression: Chest pain, rule out acute myocardial infarction Additional Impressions: Pacemaker CAD (coronary artery disease) Disposition: ADMITTED INPT THIS HOSP Admitting Physician: Ruben Corrales Condition: STABLE Referrals: GARY BROOKS (PCP) Problem Qualifiers LINNEA CEBALLOS DO Apr 14, 2020 12:24
[2020-04-14 12:34] LABS: BASO # 0.1 x10^3/uL (0.0-0.2); BASO % 1 % (0-3); EOS # 0.1 x10^3/uL (0.0-0.7); EOS % 1 % (0-3); HEMATOCRIT 42.4 % (39.0-53.0); LYMPH # 1.8 x10^3/uL (1.0-4.8); LYMPH % 31 % (24-48); MEAN CORPUSCULAR HEMOGLOBIN 33 pg (25-35); MEAN CORPUSCULAR HGB CONC 33 g/dL (31-37); MEAN CORPUSCULAR VOLUME 99 fL (79-100); MONO # 0.6 x10^3/uL (0.0-1.1); MONO % 11 % (0-9); NEUT # 3.3 x10^3uL (1.8-7.7); NEUT % 56 % (31-73); PLATELET COUNT 272 x10^3/uL (140-400); RED BLOOD COUNT 4.28 x10^6/uL (4.30-5.70); RED CELL DISTRIBUTION WIDTH 13.1 % (11.5-14.5); WHITE BLOOD COUNT 5.9 x10^3/uL (4.0-11.0)
--- NOTE | 2020-04-14 12:36 | RAD ---
EXAM: XR CHEST 1V INDICATION: Reason: CHEST PAIN / Spl. Instructions: / History: . TECHNIQUE: Single view COMPARISON: 12/21/2019 chest x-ray FINDINGS: Left chest multichamber AICD is redemonstrated with additional abandoned leads in the right chest sim ilar to prior. The heart size is normal. The great vessels appear unremarkable. There is no hilar or mediastinal mass. The lungs are clear. There is no pleural effusion or pneumothorax. There are no significant osseous abnormalities. IMPRESSION: No active cardiopulmonary disease. Electronically signed by: Nicole Brewer MD (04/14/2020 12:33 PM) [id number]
[2020-04-14 12:37] LABS: CALCIUM 8.9 mg/dL (8.5-10.1); CREATININE 1.2 mg/dL (0.7-1.3); GFR 58.4; POTASSIUM 4.2 mmol/L (3.5-5.1)
[2020-04-14] MEDS ORDERED: ASPIRIN CHEWABLE 81 MG TABLET. PO ONE (12:45)
[2020-04-14] MEDS ORDERED: NITROGLYCERIN SUBLINGUAL 0.4 MG BOTTLE OF 25. SL PRN (13:15)
--- NOTE | 2020-04-14 14:16 | HP ---
ADMIT DATE: 04/14/2020 ATTENDING PHYSICIAN: Dr. Gill. CHIEF COMPLAINT: Dizziness. HISTORY OF PRESENT ILLNESS: The patient is a 79-year-old gentleman who was actually fairly active and healthy. He appears much younger than the stated age. He has a known history of heart disease. He has a permanent pacemaker defibrillator for idiopathic ventricular arrhythmia. He had an episode of dizziness. He was not sure whether the defibrillator went off. He did not feel any shocks. He had a presyncopal episode, did not pass out. brought him into the ED, they were concerned about pacemaker defibrillator function. He was in a stable rhythm. His first set of cardiac enzymes showed no ischemia. The patient was admitted for observation and monitoring of his rhythm and serial cardiac enzymes. He does see Dr. Colvin every 6 months. PAST MEDICAL HISTORY: Significant for the cardiac issue leading back to the early . He has idiopathic ventricular arrhythmia. He has a permanent pacemaker defibrillator. This is his third or fourth one. He also has gastroesophageal reflux disease, atypical chest pain, orthostatic hypotension and some coronary artery disease. CURRENT MEDICINES: Reviewed. ALLERGIES: He has allergies to CEPHALEXIN, AMOXICILLIN, CEFAZOLIN, MEXILETINE AND POTASSIUM. Exact reaction is unclear. CURRENT MEDICATIONS: Include ascorbic acid, aspirin, calcium, Plavix 75 mg daily, green tea leaf extract, lactobacillus, Synthroid 125 mcg daily, magnesium oxide, metoprolol, niacin, omega 3 fatty acids, dehydroepiandrosterone, testosterone, thyroid, B complex, vitamin D, vitamin E, and various ifip-nvt-fnyfjjc vitamins. SOCIAL HISTORY: He is a nonsmoker, nondrinker. 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 FAMILY HISTORY: Mom with complication of diabetes at 66. Father killed himself of a self-inflicted gunshot wound to the head when he was 6 years old. He is . Three children are grown and are scattered throughout the country. 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 REVIEW OF SYSTEMS: Unremarkable for any COVID exposure, fevers, chills, cough, congestion. He is a nonsmoker. No recent travel. He has been taking his medications. He denied any chest pain or palpitation by the time I saw him. The rest of the detailed review of systems was determined to be negative. PHYSICAL EXAMINATION: GENERAL: When I saw him, this is a pleasant gentleman who was alert and oriented. VITAL SIGNS: Initial blood pressure was 141/76, pulse is 79 and regular, temperature 98.4 degrees Fahrenheit, oxygen saturation 96% on room air. HEENT: Head is without trauma. Pupils are reactive. Sclerae are nonicteric. The oropharynx is clear. NECK: Supple, no bruits identified. LUNGS: Otherwise, clear to auscultation. CARDIOVASCULAR: Showed regular heart tones. No gallops. Peripheral pulses are palpable and full. ABDOMEN: Soft, scaphoid, nontender, no organomegaly. Bowel sounds were hypoactive. EXTREMITIES: Showed no cyanosis or edema. NEUROLOGIC: Focally intact. Speech is fluent. Production Assembly Supervisor intact. SKIN: Warm and dry. PERTINENT LABORATORY AND X-RAY STUDIES: Cardiac enzymes initially was unremarkable for coronary ischemia. Chest x-ray was entirely clear without any cardiopulmonary process. Hemoglobin was 14.0 g/dL with a white count of 5900. Electrolytes, BUN and creatinine all within normal range. ASSESSMENT: 1. A 79-year-old gentleman with near syncopal episode. 2. Chest pressure, rule out coronary ischemia. 3. Pacemaker defibrillator for idiopathic ventricular arrhythmias. 4. Gastroesophageal reflux disease. 5. Hypothyroidism, on replacement. 6. Supposed diagnosis of idiopathic ventricular tachycardia. 7. History of coronary artery disease with previous angioplasty. 8. Permanent pacemaker defibrillator. PLAN: 1. Admit to observation status. 2. Serial cardiac enzyme. 3. Home meds continued. 4. Diet as tolerated. 5. If enzymes are negative, he can be discharged first thing tomorrow morning. HIGINIO GILL MD DR: MATY/sandra JOB#: [id number] / [id number]
[2020-04-14 15:02] LABS: CLARITY,URINE HAZY; COLOR,URINE YELLOW
[2020-04-14 15:03] LABS: BACTERIA,URINE 0 /HPF (0-FEW); BILIRUBIN,URINE NEG (NEG); GLUCOSE,URINE NEG (NEG); NITRITE,URINE NEG (NEG); RBC,URINE OCC /HPF (0-2); SQUAMOUS EPITHELIAL CELL,UR OCC /LPF; UROBILINOGEN,URINE 0.2 mg/dL (0.2 mg/dL); WBC,URINE OCC /HPF (0-4)
[2020-04-14 16:47] VITALS: BP 125/74
[2020-04-14 18:59] VITALS: BP 124/65
--- NOTE | 2020-04-14 19:06 | NUR ---
Nursing Note Pt admitted to [facility], pleasant calm and cooperative, states he had a syncopal episode and is better now. Described that he fell on the floor and briefly passed out didn't not sustain injury. Pt denies any symptoms at this point and is currently reading a book about reversing aging. Pt also takes multiple agents for his prostate history that are not supplied in our pharmacy.
[2020-04-14 23:00] VITALS: BP 126/69
--- NOTE | 2020-04-15 04:32 | NUR ---
PT IS ATRIAL PACED ON THE MONITOR WITH OCCASIONAL PVC'S. SLEPT WELL. DENIES ANY C/O THIS AM.
[2020-04-15 05:20] VITALS: BP 114/71
--- NOTE | 2020-04-15 07:15 | NUR ---
CARDIOLOGY CONSULT CALLED TO DR. MCFARLAND. L/M WITH ANSWERING SERVICE. AWAITING CALL BACK.
[2020-04-15 09:00] VITALS: BP 114/71
[2020-04-15] MEDS: ASPIRIN CHEWABLE 81 MG TABLET. PO SCH ×2 (09:00→09:16)
[2020-04-15] MEDS ORDERED: METOPROLOL SUCC 24HR ER 25 MG TAB.ER.24H. PO SCH (09:00)
[2020-04-15] MEDS ORDERED: MAGNESIUM OXIDE 400 MG TABLET PO SCH (09:00)
[2020-04-15] MEDS ORDERED: POTASSIUM CHLORIDE 20 MEQ TABLET.ER. PO SCH (09:00)
--- NOTE | 2020-04-15 09:34 | NUR ---
Pt dcd to home with . Instructed pt to f/u with pcp 7-10 days. Info given on chest pain. Ambulated to car.Iv dcd to [facility].
--- NOTE | 2020-04-15 09:39 | DS ---
DATE OF DISCHARGE: 04/15/2020 ATTENDING PHYSICIAN: Dr. Gill. FINAL DISCHARGE DIAGNOSES: 1. Near syncopal episode, resolved. 2. Chest pressure, coronary ischemia ruled out. 3. History of pacemaker defibrillator. He has a diagnosis of idiopathic ventricular tachycardia. 4. Gastroesophageal reflux disease. 5. Hypothyroidism, on replacement. 6. Previous angioplasty for coronary artery disease. 8. Permanent pacemaker defibrillator. HISTORY AND PHYSICAL: This pleasant, active 79-year-old gentleman has a pacemaker defibrillator for idiopathic ventricular tachycardia. It did not fire. He would have felt a jolt. He was doing some exercises. He had a near syncopal episode, got dizzy, a little chest pressure, resolved. He was admitted to the hospital overnight for observation, serial cardiac enzymes. PHYSICAL EXAMINATION: Please see the dictated note. PERTINENT LABORATORY AND X-RAY STUDIES: On admission, his hemoglobin is 14.0 g/dL, white count was 5900. Electrolytes within normal range with a creatinine of 1.2 mg/dL, potassium 4.2 mEq per liter, sodium 138. Nonfasting blood sugar 121. Three sets of cardiac enzymes were negative for any coronary ischemia. BNP was 353. Chest x-ray was entirely clear without any decompensation or infiltrates. COURSE IN THE HOSPITAL: The patient was back to his baseline. We continued his home meds. Serial cardiac enzymes rule out any coronary ischemia or necrosis. He did well. Blood pressure and vital signs were stable the next morning. His heart rate was 80 and regular. He was afebrile. Blood pressure was 126/69. His oxygen saturation 97% on room air. Lungs were clear. Heart rate was regular. He was ready for discharge with reassurance. I explained to him the various physiology whether he got dizzy and had a vasovagal episode or he has some sort of arrhythmia. His rhythm was quite stable in the hospital. I also discussed with him that should he have any further symptoms, they may consider doing an event monitor for the last 14 days for 30 days depending on the model. He is discharged home with no changes on his meds. He will continue his ascorbic acid, aspirin, green tea extract, lactobacillus, Synthroid, magnesium oxide, metoprolol, niacin, omega 3 fatty acids, potassium supplementation, testosterone, vitamin B, vitamin D, and vitamin E, dose is unchanged. He will follow up with his baked goods stock clerk as scheduled for 04/29. The patient was then discharged from our hospital in stable condition with explicit instructions and followup care. HIGINIO GILL MD DR: MATY/sandra JOB#: [id number] / [id number] GARY Vaughn MD
== END 2020-04-15 09:39 | disposition home or self-care (01) ==
LOC: ER 12:01 → 1 SOUTH 13:20
PROVIDERS: ADMIT Hospitalist; ATTEND Hospitalist
DX: R55 Syncope and collapse (principal); R07.89 Other chest pain; I25.10 Atherosclerotic heart disease of native coronary artery without angina pectoris; I47.2 Ventricular tachycardia; E03.9 Hypothyroidism, unspecified; E11.9 Type 2 diabetes mellitus without complications; K21.9 Gastro-esophageal reflux disease without esophagitis; Z79.82 Long term (current) use of aspirin; Z95.810 Presence of automatic (implantable) cardiac defibrillator; Z96.659 Presence of unspecified artificial knee joint; Z95.5 Presence of coronary angioplasty implant and graft; Z79.01 Long term (current) use of anticoagulants; Z90.49 Acquired absence of other specified parts of digestive tract; Z79.899 Other long term (current) drug therapy
CPT/HCPCS: 36415; 71045; 80048; 81001; 82550; 83735; 83880; 84484; 85025; 93005; 99291; G0378; G0379

== ENCOUNTER → 2020-06-01 | Outpatient (CLI) | payer MEDICARE, BC ==
[~2020-06-01] MED LIST changes: +IOHEXOL 300 MG/ML 75 ML VIAL. IV ONE
--- NOTE | 2020-06-01 14:23 | RAD ---
EXAM: CT Chest with IV contrast CLINICAL HISTORY: SYNCOPE WITH COLLAPSE COMPARISON: None. TECHNIQUE: CT of the chest following the administration of intravenous contrast. Axial, coronal and s agittal reformatted images were generated. ---PQRS compliance statement - One or more of the following individualized dose reduction techniques were utilized for this study: 1. Automated exposure control 2. Adjustment of the mA and/or kV according to patient size 3. Use of iterative reconstruction technique--- FINDINGS: CHEST: Heart is not enlarged. No pericardial effusion. Pacer leads are seen within the heart. Left chest pa cemaker device results in streak artifact limiting evaluation. Coronary artery calcifications are see n. Aorta is normal in caliber with atherosclerotic calcifications of the arch. No evidence for aortic dissection or aneurysm. No pleural effusion or pneumothorax. No axillary lymphadenopathy. No mediastinal or hilar lymphadenopathy. Calcified granuloma left upper lobe. No suspicious lung nodule or mass. No lobar consolidation. Visualized Upper abdomen: Left upper pole renal cyst is seen. Bones: Multilevel degenerative changes of the spine. No aggressive osseous lesion. IMPRESSION: 1. Aorta is normal in caliber without evidence for dissection or aneurysm. 2. No lobar consolidation. Electronically signed by: Hrai Castro MD (06/01/2020 2:20 PM) [id number]
== END ==
LOC: CT 10:16
PROVIDERS: ATTEND Internal Medicine Cardiovascular Disease
DX: R55 Syncope and collapse (principal)
CPT/HCPCS: 71260; Q9967

== ENCOUNTER → 2021-01-19 | Outpatient (CLI) | payer MEDICARE, BC ==
[~2021-01-19] MED LIST changes: -CALC600T6 PO; +CALC600T60 PO; -IOHEXOL 300 MG/ML 75 ML VIAL. IV ONE; +POTA-121 PO; -POTA20TA4 PO
--- NOTE | 2021-01-19 18:25 | RAD ---
PA and lateral chest radiographs 01/19/2021 CLINICAL HISTORY: Cough. Recent Covid. PA and lateral digital radiographs of the chest were obtained. Comparison study is dated 04/14/2020. A left-sided pacemaker is unchanged position. Residual right-sided pacemaker wires are unchanged. The cardiac silhouette is mildly enlarged. The thoracic aorta is tortuous. Atherosclerotic calcification thoracic aorta is seen. A calcified granuloma is seen involving the left upper lobe. Emphysematous c hanges are seen bilaterally. No acute pulmonary infiltrate is noted. No pneumothorax or pleural effus ion is seen. Degenerative changes are seen involving the thoracic spine. IMPRESSION: No acute abnormality is seen. Electronically signed by: Lester Rene MD (01/19/2021 6:22 PM) [id number]
== END ==
LOC: RAD 14:27
PROVIDERS: ATTEND Internal Medicine
DX: J43.9 Emphysema, unspecified (principal); I70.0 Atherosclerosis of aorta; J84.10 Pulmonary fibrosis, unspecified; I51.7 Cardiomegaly; Q25.46 Tortuous aortic arch; M47.814 Spondylosis without myelopathy or radiculopathy, thoracic region; Z95.0 Presence of cardiac pacemaker; Z86.16 Personal history of COVID-19
CPT/HCPCS: 71046

== ENCOUNTER → 2021-03-28 | Outpatient (CLI) | payer MEDICARE, BC ==
[~2021-03-28] MED LIST changes: +IOHEXOL 300 MG/ML 75 ML VIAL. IV ONE
--- NOTE | 2021-03-28 15:37 | RAD ---
CT HEAD WITHOUT AND WITH IV CONTRAST History: Reason: R51.9, H53.8 / Spl. Instructions: / History: Comparison: November 20, 2018 Technique: CT head without and with intravenous contrast. Exposure: One or more of the following individualized dose reduction techniques were utilized for thi s examination: 1. Automated exposure control 2. Adjustment of the mA and/or kV according to patient size 3. Use of iterative reconstruction technique. Findings: No intracranial hemorrhage. No mass effect. No hydrocephalus. Unchanged arachnoid cyst within the left lateral posterior fossa. Mild brain parenchymal volume loss. Moderate foci of decreased attenuation within the hemispheric whi te matter, most often due to chronic microvascular ischemia. Imaged orbits are unremarkable. Minimal scattered ethmoid and maxillary sinus because of thickening. Mastoid air cells are clear. No acute calvarial fracture. Impression: 1. No acute intracranial abnormality. 2. Unchanged left lateral posterior fossa arachnoid cyst. 3. Moderate sequelae of chronic microvascular ischemia. Electronically signed by: Trey Da Silva DO (03/28/2021 3:34 PM) [id number]
== END ==
LOC: CT 09:57
PROVIDERS: ATTEND Family Medicine
DX: G93.0 Cerebral cysts (principal); I67.82 Cerebral ischemia; G93.89 Other specified disorders of brain; R51.9 Headache, unspecified; H53.8 Other visual disturbances
CPT/HCPCS: 70470; Q9967

== ENCOUNTER → 2021-04-06 | Outpatient (CLI) | payer MEDICARE, BC ==
[~2021-04-06] MED LIST changes: -IOHEXOL 300 MG/ML 75 ML VIAL. IV ONE
--- NOTE | 2021-04-06 08:59 | RAD ---
Site ID: [id number] EXAMINATION: XR EXAM OF ANKLE_LEFT 3V. HISTORY: 80 years Male Reason: LEFT ANKLE PAIN SINCE AUGUST AFTER KNEE SURGERY COMPARISON: None. FINDINGS: No fracture, dislocation or radiopaque foreign body. The joint spaces and articular surfaces appea r unremarkable. IMPRESSION: Unremarkable exam. Electronically signed by: Berhane Toth MD (04/06/2021 8:56 AM) [id number]
== END ==
LOC: RAD 08:16
PROVIDERS: ATTEND Orthopaedic Surgery
DX: M25.572 Pain in left ankle and joints of left foot (principal)
CPT/HCPCS: 73610